=== PATIENT | male | born 1995 | race Two or more races ===

== ENCOUNTER 2024-08-21 18:16 | Inpatient (IN) | payer MEDICAID, OTHER ==
[~2024-08-21] VITALS: Ht 188 cm; Wt 56.0 kg
--- NOTE | 2024-08-21 18:48 | ED.PDOC ---
History of present illness HPI Comments 29-year-old male who came to ER for hyperglycemia. Patient has history of type 1 diabetes, and claims that he has good compliance to his insulin. For the past week patient has been having abdominal discomfort, with episodes of nausea and vomiting. Said symptoms will resolve after a few days. Earlier today, patient started having nausea and vomiting again, blood sugar upon arrival read "high". Chief Complaint: Hyperglycemia Time Seen by MD: 18:47 History of present illness: Nurses Notes Allergies: Coded Allergies: NO KNOWN ALLERGIES (Unverified , 08/21/24) Information Source: Patient Mode of Arrival: Ambulatory Timing: Hours Duration: Since onset Prehospital treatment: None [place]: Shaky, Sweaty Symptoms: Anxious, Shaky, Sweaty History of: Diabetes, Insulin use Associated signs and symptoms: Abdominal Pain, Nausea, Vomiting Past Medical History PAST MEDICAL HISTORY: CVA, DM Surgical History (Other): Right eye enucleation Family History Family History: Reviewed,noncontributory to illness Social History Smoker: Non-Smoker Alcohol: Denies ETOH Use Drugs: Denies Drug Use Lives In: Home Constitutional: reports: weakness; denies: chills, diaphoresis, fatigue, fever, malaise, sweats, others EENTM: denies: blurred vision, double vision, ear bleeding, ear discharge, ear drainage, ear pain, ear ringing, eye pain, eye redness, hearing loss, mouth pain, mouth swelling, nasal discharge, nose bleeding, nose congestion, nose pain, photophobia, tearing, throat pain, throat swelling, voice changes, others Respiratory: denies: cough, hemoptysis, orthopnea, SOB at rest, shortness of breath, SOB with excertion, stridor, wheezing, others Cardiovascular: denies: chest pain, dizzy spells, diaphoresis, Dyspnea on exertion, edema, irregular heart beat, left arm pain, lightheadedness, palpitations, PND, syncope, others Gastrointestinal: reports: abdominal pain, nausea, vomiting; denies: abdomen distended, blood streaked bowels, constipated, diarrhea, dysphagia, difficulty swallowing, hematemesis, melena, poor appetite, poor fluid intake, rectal bleeding, rectal pain, others Genitourinary: denies: burning, dysuria, flank pain, frequency, hematuria, incontinence, penile discharge, penile sore, pain, testicle pain, testicle swelling, urgency, others Neurological: denies: dizziness, fainting, headache, left sided numbness, left sided weakness, numbness, paresthesia, pre-existing deficit, right sided numbness, right sided weakness, seizure, speech problems, tingling, tremors, weakness, others Musculoskeletal: denies: back pain, gout, joint pain, joint swelling, muscle pain, muscle stiffness, neck pain, others Integumetry: denies: bruises, change in color, change in hair/nails, dryness, laceration, lesions, lumps, rash, wounds, others Allergic/Immunocompromised: denies: Difficulty Healing, Frequent Infections, Hives, Itching, others Hematologic/Lymphatic: denies: anemia, blood clots, easy bleeding, easy bruising, swollen glands, others Endocrine: denies: excessive hunger, excessive sweating, excessive thirst, excessive urination, flushing, intolerance to cold, intolerance to heat, unexplained weight gain, unexplained weight loss, others Psychiatric: denies: anxiety, bipolar disorder, depression, hopeless, panic disorder, schizophrenia, sleepless, suicidal, others Physical Exam General Appearance: Moderate Distress, Normal, Thin HEENT: Normal ENT Inspection, Pharynx Normal, TMs Normal, Other (old right eye enucleation) Neck: Full Range of Motion, Non-Tender, Normal, Normal Inspection Respiratory: Chest Non-Tender, Lungs Clear, No Accessory Muscle Use, No Respiratory Distress, Normal Breath Sounds Cardiovascular: No Edema, No JVD, No Murmur, No Gallop, Tachycardia Breast Exam: Deferred Gastrointestinal: No Organomegaly, Non Tender, No Pulsatile Mass, Normal Bowel Sounds, Soft Genitalia: Deferred Pelvic: Deferred Rectal: Deferred Extremities: No calf tenderness, Normal capillary refill, Normal inspection, Normal range of motion, Non-tender, No pedal edema Musculoskeletal : Apperance: Normal Neurologic: Alert, 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 Was a procedure done?: No Differential Diagnosis (DM) Differential Diagnosis: DKA, Electrolyte Abnormality, Gastritis, Gastroenteritis, Hyperglycemia X-Ray, Labs, Meds, VS Vital Signs Date Time Temp Pulse Resp B/P (MAP) Pulse Ox O2 Delivery O2 Flow Rate FiO2 08/21/24 18:36 98.4 103 20 133/89 (104) 99 Lab Test 08/21/24 19:06 08/21/24 19:00 08/21/24 18:28 08/21/24 18:27 Range/Units White Blood Count 12.2 H 4.4-10.8 10^3/uL Red Blood Count 3.77 L 4.5-5.90 10^6/uL Hemoglobin 10.7 L 13.5-17.5 g/dL Hematocrit 33.8 L 41.0-53.0 % Mean Corpuscular Volume 89.6 80.0-100.0 fL Mean Corpuscular Hemoglobin 28.5 28.0-32.0 pg Mean Corpuscular Hemoglobin Concent 31.8 L 32.0-36.0 g/dL Red Cell Distribution Width 18.0 H 11.8-14.3 % Platelet Count 433 140-450 10^3/uL Mean Platelet Volume 8.0 6.9-10.8 fL Neutrophils (%) (Auto) 67.7 37.0-80.0 % Lymphocytes (%) (Auto) 19.3 10.0-50.0 % Monocytes (%) (Auto) 11.1 0.0-12.0 % Eosinophils (%) (Auto) 1.1 0.0-7.0 % Basophils (%) (Auto) 0.8 0.0-2.0 % Neutrophils # (Auto) 8.3 1.6-8.6 10 ^3/uL Lymphocytes # (Auto) 2.4 0.4-5.4 10 ^3/uL Monocytes # (Auto) 1.4 H 0-1.3 10 ^3/uL Eosinophils # (Auto) 0.1 0-0.8 10 ^3/uL Basophils # (Auto) 0.1 0-0.2 10 ^3/uL Nucleated Red Blood Cells 0.0 % Sodium Level 128 L 136-145 mmol/L Potassium Level 4.7 3.5-5.1 mmol/L Chloride Level 93 L 98-107 mmol/L Carbon Dioxide Level 23 20-31 mmol/L Anion Gap 12 5-15 Blood Urea Nitrogen 40 H 9-23 mg/dL Creatinine 2.70 H 0.700-1.30 mg/dL Glomerular Filtration Rate Calc 32 >90 mL/min BUN/Creatinine Ratio 14.8 10.0-20.0 Serum Glucose 640 *H 74-106 mg/dL Calcium Level 10.4 8.7-10.4 mg/dL Magnesium Level 2.0 1.6-2.6 mg/dL Total Bilirubin 0.3 0.2-1.0 mg/dL Aspartate Amino Transferase (AST) 27 13-40 U/L Alanine Aminotransferase (ALT) 30 7-40 U/L Alkaline Phosphatase 150 H 46-116 U/L Total Protein 7.9 5.7-8.2 g/dL Albumin 4.9 H 3.2-4.8 g/dL Beta-Hydroxybutyric Acid Pending Blood Gas Specimen Type Venous Blood Gas Sample Site Vbg - n/a Blood Gas Patient Temperature 37.0 Arterial Blood Date Drawn [id number] Ryan Test N/a Venous Blood pH 7.333 7.320-7.430 Venous Blood pCO2 at Patient Temp 44.8 38.0-54.0 mmHg Venous Blood pO2 at Patient Temp < 36.5 23.0-48.0 mmHg Venous Blood HCO3 23.2 22.0-29.0 mmol/L Venous Blood Base Excess -2.8 L -2.0-3.0 mmol/L Blood Gas Modality Room air FiO2 % 21.0 POC Glucose > 600 *H > 600 *H 70-106 mg/dl Time of 1ST Reevaluation: 18:45 Reevaluation 1ST: Unchanged Time of 2ND Reevaluation: 21:22 Reevaluation 2ND: Unchanged Patient Education/Counseling: Diagnosis, Treatment Family Education/Counseling: No Family Present Departure 1 Departure Time of Disposition: 21:07 Impression: Primary Impression: Type 1 diabetes mellitus with hyperglycemia Additional Impressions: Acute renal injury Dehydration Disposition: 09 ADMITTED INPATIENT Admit to: Med Surg Condition: Guarded Critical Care Note Critical Care Time?: Yes (45 min-critical care time only) Critical care comment: Hyperglycemia Total critical care time: Approximately 36 minutes Due to a high probability of clinically significant, life threatening de terioration, the patient required my highest level of preparedness to intervene emergently and I personally spent this critical care time directly and personally managing the patient. This critical care time included obtaining a history; examining the patient; pulse oximetry; ordering and review of studies; arranging urgent treatment with development of a management plan; evaluation of patient's response to treatment; frequent reassessment; and, discussions with other providers. This critical care time was performed to assess and manage the high probability of imminent, life-threatening deterioration that could result in multi-organ failure. It was exclusive of separately billable procedures and treating other patients. Stability Stability form required: No Heart Score Heart Score: Heart Score Response (Comments) Value History Slightly Suspicious 0 EKG N/A 0 Age <45 0 Risk Factors 1 or 2 risk factors 1 Troponin N/A 0 Total 1 I personally scribed for MARY LOU DE OLIVEIRA MD ([email or web address]) on 08/21/24 at 18:48. Electronically submitted by Raúl Phillips ([facility]). MARY LOU DE OLIVEIRA MD Aug 21, 2024 18:48
[2024-08-21 19:28] LABS: Basophils # (auto) 0.1 10 ^3/uL (0-0.2); Basophils % (auto) 0.8 % (0.0-2.0); Eosinophils # (auto) 0.1 10 ^3/uL (0-0.8); Eosinophils % (auto) 1.1 % (0.0-7.0); Hematocrit 33.8 % (41.0-53.0); Hemoglobin 10.7 g/dL (13.5-17.5); Lymphocytes # (auto) 2.4 10 ^3/uL (0.4-5.4); Lymphocytes % (auto) 19.3 % (10.0-50.0); Mean Corpuscular Hemoglobin 28.5 pg (28.0-32.0); Mean Corpuscular Hgb Conc. 31.8 g/dL (32.0-36.0); Mean Corpuscular Volume 89.6 fL (80.0-100.0); Monocytes # (auto) 1.4 10 ^3/uL (0-1.3); Monocytes % (auto) 11.1 % (0.0-12.0); Neutrophils # (auto) 8.3 10 ^3/uL (1.6-8.6); Neutrophils % (auto) 67.7 % (37.0-80.0); Platelet Count (auto) 433 10^3/uL (140-450); Red Blood Cells 3.77 10^6/uL (4.5-5.90); White Blood Cell 12.2 10^3/uL (4.4-10.8)
[2024-08-21 19:43] LABS: Alanine Aminotransferase 30 U/L (7-40); Anion Gap 12 (5-15); Aspartate Aminotransferase 27 U/L (13-40); BUN/Creatinine Ratio 14.8 (10.0-20.0); Calcium 10.4 mg/dL (8.7-10.4); Carbon Dioxide 23 mmol/L (20-31); Potassium 4.7 mmol/L (3.5-5.1); Total Protein 7.9 g/dL (5.7-8.2)
[2024-08-21 19:46] LABS: Albumin 4.9 g/dL (3.2-4.8); Alkaline Phosphatase 150 U/L (46-116); Bilirubin, Total 0.3 mg/dL (0.2-1.0); Blood Urea Nitrogen 40 mg/dL (9-23); Chloride 93 mmol/L (98-107); Sodium 128 mmol/L (136-145)
[2024-08-21 19:56] LABS: Glucose 640 mg/dL (74-106)
[2024-08-21] MEDS ORDERED: MORPHINE SULFATE INJ 2 MG/ml SYRG IV PRN (22:15)
[2024-08-21] MEDS ORDERED: ACETAMINOPHEN 325 MG TAB PO PRN (22:15)
[2024-08-21] MEDS ORDERED: ONDANSETRON HCL 4 MG/2 ML VIAL IV PRN (22:15)
[2024-08-21] MEDS ORDERED: NITROGLYCERIN 0.4 MG SL TAB SL PRN (22:15)
[2024-08-21] MEDS ORDERED: DEXTROSE (50%) 50ML SYRG IV PRN (22:15)
--- NOTE | 2024-08-21 22:23 | DVHHPRES ---
History of Present Illness Resident Creating Document: DAVI ANDERSON RESIDENT History of Present Illness This is a 29 years old male past medical history of type 1 diabetes mellitus, CVA with left-sided weakness, schizophrenia presented to the ED with a chief complaint of hyperglycemia. The patient states that he has been having abdominal discomfort with few episodes of nausea and vomiting for last 2 days and compliant with his insulin. The patient denies headache, flu-like symptoms, productive cough, chest pain, dizziness, diaphoresis, any change in bowel and bladder habit, dysuria, sick contact or any recent traveling. On admission the blood sugar was 600 with normal anion gap and increase beta hy droxybutyric acid. Patient is admitted for further management of hyperglycemia with normal anion gap ketoacidosis. 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 Family History Not Known because patient was adopted Past Social History Marijuana since adolescence, nonalcoholic and never tried any other drugs Review of Systems Constitutional: Yes: Weakness; No: Fever, Chills, Sweats, Malaise, Other Eyes: No: Pain, Vision change, Conjunctivae inflammation, Eyelid inflammation, Other, Redness ENT: No: Ear pain, Ear discharge, Nose pain, Nose discharge, Nose congestion, Mouth pain, Mouth swelling, Throat pain, Throat swelling, Other Respiratory: No: Cough, Dry, Shortness of breath, SOB with excertion, Wheezing, Hemoptysis, Pleuritic Pain, Sputum, Wheezing, Other Cardiovascular: No: Chest Pain, Palpitations, Orthopnea, Paroxysmal Noc. Dyspnea, Edema, Lt Headedness, Other Gastrointestinal: Nausea, Vomiting, Abdominal Pain; No: Diarrhea, Constipation, Melena, Hematochezia, Other Genitourinary: No Dysuria, No Frequency, No Incontinence, No Hematuria, No Retention, No Other Musculoskeletal: No: other, neck pain, shoulder pain, arm pain, back pain, hand pain, leg pain, foot pain Skin: No: Rash, Lesions, Jaundice, Bruising, Other Neurological: No: Weakness, Numbness, Incoordination, Change in speech, Confusion, Seizures, Other Allergies: Coded Allergies: NO KNOWN ALLERGIES (Unverified , 08/21/24) Medications Current Medications Medications Dose Ordered Sig/Dann Route Start Time Stop Time Status Last Admin Dose Admin Ondansetron HCl 4 mg Q4HP PRN IV 08/21/24 22:15 UNV Acetaminophen 650 mg Q6HP PRN PO 08/21/24 22:15 UNV Nitroglycerin 0.4 mg Q5MINP PRN SL 08/21/24 22:15 UNV Morphine Sulfate 2 mg Q30M PRN IV 08/21/24 22:15 UNV Sodium Chloride 1,000 ml @ 500 mls/hr Q2H IV 08/21/24 22:15 08/22/24 02:14 UNV Sodium Chloride 1,000 ml @ 250 mls/hr Q4H IV 08/22/24 02:15 08/22/24 04:14 UNV Sodium Chloride 1,000 ml @ 150 mls/hr Q6H40M IV 08/22/24 04:15 UNV Insulin Human (Reg)/Sodium Chloride 100 ml @ 0.5 mls/hr Q24H IV 08/21/24 22:15 UNV Dextrose 50 ml UD PRN IV 08/21/24 22:15 UNV Insulin Glargine 15 units DAILY SC 08/22/24 10:00 UNV Exam Vital Signs Vital Signs Date Time Temp Pulse Resp B/P (MAP) Pulse Ox O2 Delivery O2 Flow Rate FiO2 08/21/24 18:36 98.4 103 20 133/89 (104) 99 Exam Physical examination: General Appearance: Alert, Oriented X3, Cooperative, No acute distress HEENT: Atraumatic, PERRLA, EOMI, Mucous membrane dry Respiratory: Clear to auscultation, Normal air movement Cardiovascular: Regular rate, Normal S1, Normal S2, No murmurs, no chest wall tenderness Abdominal: Normal bowel sounds, Soft, No tenderness, No hepatospenomegaly, No masses Extremities: No clubbing, No cyanosis, No edema, Normal pulses, No tenderness/swelling Skin: No rashes, No breakdown, No significant lesion Neuro: Lt sided weakness, Normal speech, Strength at 5/5 X2 ext, Normal tone, Sensation intact, grossly intact cranial nerves. Psych/Mental Status: Mental status NL, Mood NL Labs/Xrays Labs Test 08/21/24 19:06 08/21/24 19:00 08/21/24 18:28 Range/Units White Blood Count 12.2 H 4.4-10.8 10^3/uL Red Blood Count 3.77 L 4.5-5.90 10^6/uL Hemoglobin 10.7 L 13.5-17.5 g/dL Hematocrit 33.8 L 41.0-53.0 % Mean Corpuscular Volume 89.6 80.0-100.0 fL Mean Corpuscular Hemoglobin 28.5 28.0-32.0 pg Mean Corpuscular Hemoglobin Concent 31.8 L 32.0-36.0 g/dL Red Cell Distribution Width 18.0 H 11.8-14.3 % Platelet Count 433 140-450 10^3/uL Mean Platelet Volume 8.0 6.9-10.8 fL Neutrophils (%) (Auto) 67.7 37.0-80.0 % Lymphocytes (%) (Auto) 19.3 10.0-50.0 % Monocytes (%) (Auto) 11.1 0.0-12.0 % Eosinophils (%) (Auto) 1.1 0.0-7.0 % Basophils (%) (Auto) 0.8 0.0-2.0 % Neutrophils # (Auto) 8.3 1.6-8.6 10 ^3/uL Lymphocytes # (Auto) 2.4 0.4-5.4 10 ^3/uL Monocytes # (Auto) 1.4 H 0-1.3 10 ^3/uL Eosinophils # (Auto) 0.1 0-0.8 10 ^3/uL Basophils # (Auto) 0.1 0-0.2 10 ^3/uL Nucleated Red Blood Cells 0.0 % Sodium Level 128 L 136-145 mmol/L Potassium Level 4.7 3.5-5.1 mmol/L Chloride Level 93 L 98-107 mmol/L Carbon Dioxide Level 23 20-31 mmol/L Anion Gap 12 5-15 Blood Urea Nitrogen 40 H 9-23 mg/dL Creatinine 2.70 H 0.700-1.30 mg/dL Glomerular Filtration Rate Calc 32 >90 mL/min BUN/Creatinine Ratio 14.8 10.0-20.0 Serum Glucose 640 *H 74-106 mg/dL Calcium Level 10.4 8.7-10.4 mg/dL Magnesium Level 2.0 1.6-2.6 mg/dL Total Bilirubin 0.3 0.2-1.0 mg/dL Aspartate Amino Transferase (AST) 27 13-40 U/L Alanine Aminotransferase (ALT) 30 7-40 U/L Alkaline Phosphatase 150 H 46-116 U/L Total Protein 7.9 5.7-8.2 g/dL Albumin 4.9 H 3.2-4.8 g/dL Beta-Hydroxybutyric Acid 1.765 H < 0.4 mmol/L Blood Gas Specimen Type Venous Blood Gas Sample Site Vbg - n/a Blood Gas Patient Temperature 37.0 Arterial Blood Date Drawn Ryan Test N/a Venous Blood pH 7.333 7.320-7.430 Venous Blood pCO2 at Patient Temp 44.8 38.0-54.0 mmHg Venous Blood pO2 at Patient Temp < 36.5 23.0-48.0 mmHg Venous Blood HCO3 23.2 22.0-29.0 mmol/L Venous Blood Base Excess -2.8 L -2.0-3.0 mmol/L Blood Gas Modality Room air FiO2 % 21.0 POC Glucose > 600 *H 70-106 mg/dl Assessment/Plan Assessment/Plan Assessment and plan: # Hyperglycemia with normal anion gap ketoacidosis # Psedohyponatremia due to hyperglycemia - Blood sugar is 600, normal anion gap and elevated beta hydroxybutyric acid - Given 2 L bolus IV normal saline - Insulin drip as per protocol - Potassium is 4 and magnesium and phosphorus are within normal limits. 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 daily and atorvastatin 40 mg at HS # History of schizophrenia - Continue home meds Goal of care discussed with the patient for more than 17 minutes full code Plan of treatment discussed with Dr. Winters Plan discussed with: Patient, Other My Orders Orders - DAVI ANDERSON RESIDENT Procedure Category Date Status Time Code Status CODE 08/21/24 Transmitted 22:13 Ondansetron Hcl PHA 08/21/24 Logged (Zofran) 22:15 Complete Blood Count LAB 08/22/24 Verified 04:00 Comprehensive LAB 08/22/24 Verified Metabolic Panel 04:00 Npo (Nothing By DIET 08/22/24 Transmitted Mouth) Diet Breakfast Acetaminophen Tablet PHA 08/21/24 Logged (Tylenol Tablet) 22:15 Nitroglycerin PHA 08/21/24 Logged Sublingual (Ntrostat 22:15 Morphine Sulfate PHA 08/21/24 Logged Injection 22:15 Oxygen By Nasal RT 08/21/24 Transmitted Cannula 22:13 Stat Ekg For Chest KITA 08/21/24 In Process Pain 22:13 Notify Of Changes KITA 08/21/24 In Process From Base 22:13 Sustainability Purchasing Agent For KITA 08/21/24 In Process 24 Hours 22:13 Emergency Dysrhythmia KITA 08/21/24 In Process Protocol 22:13 Rhythm Strips Once KITA 08/21/24 In Process Every Shift 22:13 Insulin Drip Protocol KITA 08/21/24 In Process Sodium Chloride 0.9% PHA 08/21/24 Logged 22:15 Sodium Chloride 0.9% PHA 08/22/24 Logged 02:15 Sodium Chloride 0.9% PHA 08/22/24 Logged 04:15 Insulin Drip 100 PHA 08/21/24 Logged Unit/100ml (Myxredlin 22:15 Dextrose 50% Syringe PHA 08/21/24 Logged 22:15 Phosphorus LAB 08/21/24 Logged 22:13 Magnesium LAB 08/21/24 Logged 22:13 Osmolality, Serum LAB 08/21/24 Logged 22:13 Urinalysis LAB 08/21/24 Logged 22:13 Insulin Lantus PHA 08/21/24 Logged (Glargine) (Lantus) 22:15 Insulin Lantus PHA 08/22/24 Logged (Glargine) (Lantus) 10:00 Admit ADMIT 08/21/24 Transmitted 22:20 Urinalysis LAB 08/21/24 Logged 22:21 Urine Protein LAB 08/21/24 Logged 22:21 Urine Creatinine LAB 08/21/24 Logged 22:21 Urine Sodium LAB 08/21/24 Logged 22:21 Date of Service: Aug 21, 2024 Billing Provider: VASILE WINTERS MD Common Visit Codes: [id number] INP/OBS CARE (HIGH) DAVI ANDERSON RESIDENT Aug 21, 2024 22:23 VASILE WINTERS MD Aug 22, 2024 10:47
[2024-08-21] MEDS: SODIUM CHLORIDE 0.9% 1,000 ML IV ONE ×2 (22:25)
[2024-08-21] MEDS ORDERED: ACCU-CHEK COMFORT CURVE STRIP VI SCH (22:30)
--- NOTE | 2024-08-21 22:40 | DVH ---
CHEST RADIOGRAPH Indication: chest pain Technique: Single frontal view of the chest was obtained COMPARISON: None FINDINGS: Lines and Tubes: None Lungs: Clear Pleura: No effusion. No pneumothorax. Cardiomediastinal contours: Unremarkable Bones: Unremarkable IMPRESSION: 1. No acute disease.
[2024-08-21] MEDS: SODIUM CHLORIDE 0.9% 1,000 ML IV SCH (22:54)
[2024-08-21] MEDS: INSULIN LANTUS (GLARGINE) 1 /0.01ml (100units/ml) SC ONE (22:58)
[2024-08-21] MEDS: InsuLIN REG 1unit/0.01ml Soln (100units/ml) IV ONE (23:01)
[2024-08-22] VITALS (7 sets, daily range): BP systolic 149–161; BP diastolic 91–112; PULSE 79–95; RESP 12–20; TEMP 98–98.6; O2SAT 97–99
--- NOTE | 2024-08-22 01:24 | DVH ---
INDICATION: NATASHA on CKD TECHNIQUE: Multiple real-time sonographic images of the kidneys and bladder were obtained. COMPARISON: None FINDINGS: The right kidney measures 11 cm in length. The right renal echogenicity, contour and cortical thickne ss are within normal limits. No hydronephrosis or large masses/calculi are seen. The left kidney measures 9.6 cm in length. The left renal echogenicity, contour, and cortical thickne ss are within normal limits. Questionable mild hydronephrosis. No calculi. No large intraluminal masses are seen in the bladder. IMPRESSION: 1. Questionable mild left-sided hydronephrosis
[2024-08-22] MEDS: INSULIN DRIP 100 UNIT/100ML 100 ML IV SCH (01:51)
[2024-08-22 02:09] LABS: Urine Bacteria None Seen /hpf (None Seen); Urine WBC None Seen /hpf (0 - 3)
[2024-08-22 03:02] LABS: Urine Blood Negative /uL (Negative); Urine Budding Yeast OCCASIONAL /hpf (None Seen); Urine Clarity Clear (Clear); Urine Protein, UAD Negative (Negative); Urine Specific Gravity 1.022 (1.001-1.035); Urine Squamous Epithelial Cell None Seen /hpf (<5); Urine Urobilinogen Normal (Negative)
[2024-08-22 03:05] LABS: Urine Color STRAW (Yellow)
[2024-08-22 03:43] LABS: Protein, Urine 17.3 mg/dL (1-14)
[2024-08-22 03:46] LABS: Creatinine, Urine 30.55 mg/dL (30.0-125.0)
[2024-08-22] MEDS: SODIUM CHLORIDE 0.9% 1,000 ML IV SCH ×2 (04:08→06:08)
[2024-08-22 06:11] LABS: Rapid Influenza A Negative (Negative); Rapid Influenza B Negative (Negative)
[2024-08-22 06:12] LABS: Basophils # (auto) 0.1 10 ^3/uL (0-0.2); Basophils % (auto) 0.9 % (0.0-2.0); Eosinophils # (auto) 0.1 10 ^3/uL (0-0.8); Eosinophils % (auto) 0.7 % (0.0-7.0); Hematocrit 28.2 % (41.0-53.0); Hemoglobin 9.3 g/dL (13.5-17.5); Lymphocytes # (auto) 2.6 10 ^3/uL (0.4-5.4); Lymphocytes % (auto) 21.6 % (10.0-50.0); Mean Corpuscular Hemoglobin 28.7 pg (28.0-32.0); Mean Corpuscular Hgb Conc. 32.9 g/dL (32.0-36.0); Mean Corpuscular Volume 87.1 fL (80.0-100.0); Monocytes # (auto) 1.9 10 ^3/uL (0-1.3); Monocytes % (auto) 15.6 % (0.0-12.0); Neutrophils # (auto) 7.3 10 ^3/uL (1.6-8.6); Neutrophils % (auto) 61.2 % (37.0-80.0); Nucleated Red Blood Cells % 0.2 %; Platelet Count (auto) 411 10^3/uL (140-450); Red Blood Cells 3.24 10^6/uL (4.5-5.90); Red Cell Distribution Width 17.4 % (11.8-14.3); White Blood Cell 11.9 10^3/uL (4.4-10.8)
[2024-08-22 06:12] LABS: COVID19 ANTIGEN SOFIA FIA NEGATIVE (NEGATIVE)
[2024-08-22 06:45] LABS: Alanine Aminotransferase 24 U/L (7-40); Alkaline Phosphatase 111 U/L (46-116); Anion Gap 10 (5-15); BUN/Creatinine Ratio 20.2 (10.0-20.0); Calcium 9.1 mg/dL (8.7-10.4); Carbon Dioxide 26 mmol/L (20-31); Potassium 3.9 mmol/L (3.5-5.1); Sodium 145 mmol/L (136-145)
[2024-08-22] MEDS ORDERED: DEXTROSE (50%) 50ML SYRG IV PRN (06:45)
[2024-08-22 06:46] LABS: Albumin 3.8 g/dL (3.2-4.8); Total Protein 6.1 g/dL (5.7-8.2)
[2024-08-22 06:51] LABS: Aspartate Aminotransferase 11 U/L (13-40); Bilirubin, Total 0.3 mg/dL (0.2-1.0); Blood Urea Nitrogen 42 mg/dL (9-23); Chloride 109 mmol/L (98-107); Glucose 184 mg/dL (74-106)
[2024-08-22] MEDS: InsuLIN REG 1unit/0.01ml Soln (100units/ml) SC SCH (07:50)
[2024-08-22] MEDS: ACCU-CHEK COMFORT CURVE STRIP VI SCH (07:50)
[2024-08-22] MEDS: INSULIN LANTUS (GLARGINE) 1 /0.01ml (100units/ml) SC SCH (08:08)
[2024-08-22 08:47] LABS: Base Excess -0.3 mmol/L (-2.0-3.0)
--- NOTE | 2024-08-22 09:45 | DVHINCON2 ---
Date of service: Aug 22, [address] Quigley Reason for Consultation Acute kidney injury History of Present Illness Patient is 29-year-old male with past medical history of diabetes mellitus type 1 CVA and right eye enucleation is admitted for abdominal pain status with nausea vomiting for few days. On admission patient found to have elevated BUN creatinine nephrology is consulted for acute kidney injury Past Medical History Diabetes mellitus type 1, CVA Past Surgical History Right eye enucleated Allergies: Coded Allergies: NO KNOWN ALLERGIES (Unverified , 08/21/24) Home Meds Reported Medications Bupropion Hcl (Bupropion Hcl Xl) 150 Mg Tab, 1 TAB PO DAILY 08/22/24 Sodium Citrate & Citric Acid (Sodium Citrate and Citric 500-334 mg/5Ml) 1 Deidre Deidre, 30 ML PO TID, ML 08/22/24 Buspirone Hcl (Buspirone Hcl) 30 Mg Tab, 1 TAB PO DAILY 08/22/24 Ergocalciferol (Vitamin D) 50,000 Unit Cap, 1 CAP PO QWEEKLY 08/22/24 Metoprolol Succinate (Metoprolol Succinate Er) 25 Mg Tab, 1 TAB PO DAILY 08/22/24 Prazosin Hcl (Minipres) 1 Mg Cp, 1 CAP PO HS for nightmares 08/22/24 Pantoprazole Sodium Sesquihydr (Pantoprazole Sodium) 40 Mg Tab, 1 TAB PO DAILY 08/22/24 Atorvastatin Calcium (ATORVASTATIN CALCIUM) 40 Mg Tab, 1 TAB PO DAILY 08/22/24 Aripiprazole (Aripiprazole) 10 Mg Tab, 1 TAB PO DAILY 08/22/24 Trazodone Hcl (Trazodone Hcl) 150 Mg Tab, 1 TAB PO 08/22/24 Current Medications Current Medications Medications (Trade) Dose Ordered Sig/Dann Route PRN Reason Start Time Stop Time Status Last Admin Atorvastatin Calcium (Lipitor) 40 mg HS PO 08/22/24 22:00 08/22/24 21:41 Pantoprazole Sodium (Protonix Tablet) 40 mg DAILY@0600 PO 08/23/24 06:00 08/23/24 06:37 Trazodone HCl (Desyrel) 150 mg HS PO 08/22/24 22:00 08/22/24 21:55 Bupropion HCl (Wellbutrin Tablet) 150 mg DAILY PO 08/23/24 10:00 08/23/24 10:33 Enoxaparin Sodium (Lovenox) 40 mg DAILY SC 08/23/24 10:00 08/23/24 10:34 Prazosin HCl (Minipres Capsule) 1 mg DAILY PO 08/23/24 10:00 08/23/24 11:22 DC Metoprolol Succinate (Toprol Xl) 25 mg DAILY PO 08/23/24 10:00 08/23/24 10:37 Hydralazine HCl (Apresoline Injection) 10 mg Q6HP PRN IV SBP>170 08/23/24 12:00 Prazosin HCl (Minipres Capsule) 1 mg HS PO 08/23/24 22:00 Insulin Glargine (Lantus) 15 units BID@1000,2200 SC 08/23/24 22:00 UNV Diagnostic Test (Pha) (Accu-Chek Comfort Curve T) 1 strip ACHS 08/23/24 17:00 UNV Insulin Human Regular (InsuLIN R) AC SC 08/23/24 17:00 UNV Insulin Human Regular (InsuLIN R) HS SC 08/23/24 22:00 UNV Dextrose 50 ml UD PRN IV Blood Sugar LESS THAN 60 08/23/24 12:30 UNV Review of Systems All 12 item review of systems reviewed with the patient nonsignificant except what is mentioned in the history of present illness H&P Exam Vital Signs/I&O Vital Sign Date Time Temp Pulse Resp B/P (MAP) Pulse Ox O2 Delivery O2 Flow Rate FiO2 08/23/24 10:37 95 152/87 08/23/24 08:58 98.6 12 100 98.6 08/22/24 20:00 Room Air* 0 21 Intake and Output 08/22/24 08/23/24 19:00 07:00 Intake Total 851.5 ml 1140 ml Output Total 850 ml 1850 ml Balance 1.5 ml -710 ml Intake Oral 1140 ml IV Total 851.5 ml Output Urine Total 850 ml 1850 ml Physical Exam Awake and alert Right eye enucleated Lungs clear to auscultation bilaterally Cardiac exam regular rate and rhythm GI soft nontender normal Extremities no clubbing cyanosis or edema Neuro patient is alert Labs/Diagnostic Data Labs/Diagnostic Data Laboratory Tests Test 08/23/24 11:54 08/23/24 11:53 08/23/24 09:01 08/23/24 06:36 Range/Units POC Glucose 493 *H 497 *H 271 H 70-106 mg/dl White Blood Count 9.4 4.4-10.8 10^3/uL Red Blood Count 3.65 L 4.5-5.90 10^6/uL Hemoglobin 10.5 L 13.5-17.5 g/dL Hematocrit 33.0 #L 41.0-53.0 % Mean Corpuscular Volume 90.4 80.0-100.0 fL Mean Corpuscular Hemoglobin 28.8 28.0-32.0 pg Mean Corpuscular Hemoglobin Concent 31.9 L 32.0-36.0 g/dL Red Cell Distribution Width 17.6 H 11.8-14.3 % Platelet Count 417 140-450 10^3/uL Mean Platelet Volume 7.3 6.9-10.8 fL Neutrophils (%) (Auto) 67.8 37.0-80.0 % Lymphocytes (%) (Auto) 22.2 10.0-50.0 % Monocytes (%) (Auto) 6.9 0.0-12.0 % Eosinophils (%) (Auto) 2.3 0.0-7.0 % Basophils (%) (Auto) 0.8 0.0-2.0 % Neutrophils # (Auto) 6.4 1.6-8.6 10 ^3/uL Lymphocytes # (Auto) 2.1 0.4-5.4 10 ^3/uL Monocytes # (Auto) 0.7 0-1.3 10 ^3/uL Eosinophils # (Auto) 0.2 0-0.8 10 ^3/uL Basophils # (Auto) 0.1 0-0.2 10 ^3/uL Nucleated Red Blood Cells 0.1 % Sodium Level 133 #L 136-145 mmol/L Potassium Level 4.5 3.5-5.1 mmol/L Chloride Level 103 98-107 mmol/L Carbon Dioxide Level 21 20-31 mmol/L Anion Gap 9 5-15 Blood Urea Nitrogen 22 # 9-23 mg/dL Creatinine 2.03 H 0.700-1.30 mg/dL Glomerular Filtration Rate Calc 45 >90 mL/min BUN/Creatinine Ratio 10.8 10.0-20.0 Serum Glucose 353 #H 74-106 mg/dL Calcium Level 9.7 8.7-10.4 mg/dL Total Bilirubin 0.2 0.2-1.0 mg/dL Aspartate Amino Transferase (AST) 18 13-40 U/L Alanine Aminotransferase (ALT) 27 7-40 U/L Alkaline Phosphatase 128 H 46-116 U/L Total Protein 7.1 5.7-8.2 g/dL Albumin 4.4 3.2-4.8 g/dL Test 08/22/24 21:46 08/22/24 17:11 08/22/24 15:14 08/22/24 09:07 Range/Units POC Glucose 323 H 285 H 280 H 78 70-106 mg/dl Test 08/22/24 08:36 08/22/24 07:54 08/22/24 06:19 08/22/24 05:45 Range/Units Blood Gas Specimen Type Arterial Blood Gas Sample Site Right radial Blood Gas Patient Temperature 37.0 Arterial Blood Date Drawn [id number] Arterial Blood pH 7.418 7.350-7.450 Arterial Blood Partial Pressure CO2 38.2 35.0-48.0 mmHg Arterial Blood Partial Pressure O2 59.3 L 83.0-108.0 mmHg Arterial Blood HCO3 24.1 21.0-28.0 mmol/L Arterial Blood Oxygen Saturation 91.0 L 94.0-98.0 % Arterial Blood Base Excess -0.3 -2.0-3.0 mmol/L Arterial Blood Oxyhemoglobin 89.6 L 94.0-98.0 % Arterial Blood Carboxyhemoglobin 1.2 0.5-1.5 % Arterial Blood Methemoglobin 0.3 0.0-1.5 % Ryan Test Yes Blood Gas Total Hemoglobin 9.90 L 13.5-17.5 g/dL Blood Gas Modality Room air FiO2 % 21.0 POC Glucose 119 H 164 H 70-106 mg/dl White Blood Count 11.9 H 4.4-10.8 10^3/uL Red Blood Count 3.24 L 4.5-5.90 10^6/uL Hemoglobin 9.3 L 13.5-17.5 g/dL Hematocrit 28.2 #L 41.0-53.0 % Mean Corpuscular Volume 87.1 80.0-100.0 fL Mean Corpuscular Hemoglobin 28.7 28.0-32.0 pg Mean Corpuscular Hemoglobin Concent 32.9 32.0-36.0 g/dL Red Cell Distribution Width 17.4 H 11.8-14.3 % Platelet Count 411 140-450 10^3/uL Mean Platelet Volume 7.4 6.9-10.8 fL Neutrophils (%) (Auto) 61.2 37.0-80.0 % Lymphocytes (%) (Auto) 21.6 10.0-50.0 % Monocytes (%) (Auto) 15.6 H 0.0-12.0 % Eosinophils (%) (Auto) 0.7 0.0-7.0 % Basophils (%) (Auto) 0.9 0.0-2.0 % Neutrophils # (Auto) 7.3 1.6-8.6 10 ^3/uL Lymphocytes # (Auto) 2.6 0.4-5.4 10 ^3/uL Monocytes # (Auto) 1.9 H 0-1.3 10 ^3/uL Eosinophils # (Auto) 0.1 0-0.8 10 ^3/uL Basophils # (Auto) 0.1 0-0.2 10 ^3/uL Nucleated Red Blood Cells 0.2 % Sodium Level 145 # 136-145 mmol/L Potassium Level 3.9 3.5-5.1 mmol/L Chloride Level 109 #H 98-107 mmol/L Carbon Dioxide Level 26 20-31 mmol/L Anion Gap 10 5-15 Blood Urea Nitrogen 42 H 9-23 mg/dL Creatinine 2.08 H 0.700-1.30 mg/dL Glomerular Filtration Rate Calc 44 >90 mL/min BUN/Creatinine Ratio 20.2 H 10.0-20.0 Serum Glucose 184 #H 74-106 mg/dL Hemoglobin A1c 9.3 H <5.7 % A1C Calcium Level 9.1 8.7-10.4 mg/dL Phosphorus Level 3.8 2.4-5.1 mg/dL Total Bilirubin 0.3 0.2-1.0 mg/dL Aspartate Amino Transferase (AST) 11 L 13-40 U/L Alanine Aminotransferase (ALT) 24 7-40 U/L Alkaline Phosphatase 111 46-116 U/L Total Protein 6.1 5.7-8.2 g/dL Albumin 3.8 3.2-4.8 g/dL Thyroid Stimulating Hormone (TSH) 0.26 L 0.55-4.78 uIU/mL Test 08/22/24 04:58 08/22/24 04:49 08/22/24 03:27 08/22/24 02:07 Range/Units Influenza Type A Antigen Negative Negative Influenza Type B Antigen Negative Negative POC Glucose 235 H 328 H 70-106 mg/dl Urine Color Straw Yellow Urine Clarity Clear Clear Urine pH 7.0 5.0-9.0 Urine Specific Mamou 1.022 1.001-1.035 Urine Protein Negative Negative Urine Ketones 1+ H Negative Urine Blood Negative Negative /uL Urine Nitrite Negative Negative Urine Bilirubin Negative Negative Urine Urobilinogen Normal Negative mg/dL Urine Leukocyte Esterase Negative Negative /uL Urine RBC 1 0 - 3 /hpf Urine WBC None seen 0 - 3 /hpf Urine Squamous Epithelial Cells None seen <5 /hpf Urine Bacteria None seen None Seen /hpf Urine Yeast (Budding) Occasional None Seen /hpf Urine Creatinine 30.55 30.0-125.0 mg/dL Urine Sodium 36 L 40-220 mmol/L Urine Glucose 4+ H Normal mg/dL Urine Total Protein 17.3 H 1-14 mg/dL Test 08/22/24 01:35 08/22/24 00:00 08/21/24 22:24 08/21/24 22:23 Range/Units POC Glucose 468 *H > 600 *H > 600 *H 70-106 mg/dl SARS-CoV-2 Antigen (Rapid) Negative NEGATIVE Test 08/21/24 19:06 08/21/24 19:00 08/21/24 18:28 08/21/24 18:27 Range/Units White Blood Count 12.2 H 4.4-10.8 10^3/uL Red Blood Count 3.77 L 4.5-5.90 10^6/uL Hemoglobin 10.7 L 13.5-17.5 g/dL Hematocrit 33.8 L 41.0-53.0 % Mean Corpuscular Volume 89.6 80.0-100.0 fL Mean Corpuscular Hemoglobin 28.5 28.0-32.0 pg Mean Corpuscular Hemoglobin Concent 31.8 L 32.0-36.0 g/dL Red Cell Distribution Width 18.0 H 11.8-14.3 % Platelet Count 433 140-450 10^3/uL Mean Platelet Volume 8.0 6.9-10.8 fL Neutrophils (%) (Auto) 67.7 37.0-80.0 % Lymphocytes (%) (Auto) 19.3 10.0-50.0 % Monocytes (%) (Auto) 11.1 0.0-12.0 % Eosinophils (%) (Auto) 1.1 0.0-7.0 % Basophils (%) (Auto) 0.8 0.0-2.0 % Neutrophils # (Auto) 8.3 1.6-8.6 10 ^3/uL Lymphocytes # (Auto) 2.4 0.4-5.4 10 ^3/uL Monocytes # (Auto) 1.4 H 0-1.3 10 ^3/uL Eosinophils # (Auto) 0.1 0-0.8 10 ^3/uL Basophils # (Auto) 0.1 0-0.2 10 ^3/uL Nucleated Red Blood Cells 0.0 % Sodium Level 128 L 136-145 mmol/L Potassium Level 4.7 3.5-5.1 mmol/L Chloride Level 93 L 98-107 mmol/L Carbon Dioxide Level 23 20-31 mmol/L Anion Gap 12 5-15 Blood Urea Nitrogen 40 H 9-23 mg/dL Creatinine 2.70 H 0.700-1.30 mg/dL Glomerular Filtration Rate Calc 32 >90 mL/min BUN/Creatinine Ratio 14.8 10.0-20.0 Serum Glucose 640 *H 74-106 mg/dL Serum Osmolality 324 H 278-298 mOsm/kg Calcium Level 10.4 8.7-10.4 mg/dL Phosphorus Level 4.4 2.4-5.1 mg/dL Magnesium Level 2.0 1.6-2.6 mg/dL Total Bilirubin 0.3 0.2-1.0 mg/dL Aspartate Amino Transferase (AST) 27 13-40 U/L Alanine Aminotransferase (ALT) 30 7-40 U/L Alkaline Phosphatase 150 H 46-116 U/L Total Protein 7.9 5.7-8.2 g/dL Albumin 4.9 H 3.2-4.8 g/dL Beta-Hydroxybutyric Acid 1.765 H < 0.4 mmol/L Blood Gas Specimen Type Venous Blood Gas Sample Site Vbg - n/a Blood Gas Patient Temperature 37.0 Arterial Blood Date Drawn Ryan Test N/a Venous Blood pH 7.333 7.320-7.430 Venous Blood pCO2 at Patient Temp 44.8 38.0-54.0 mmHg Venous Blood pO2 at Patient Temp < 36.5 23.0-48.0 mmHg Venous Blood HCO3 23.2 22.0-29.0 mmol/L Venous Blood Base Excess -2.8 L -2.0-3.0 mmol/L Blood Gas Modality Room air FiO2 % 21.0 POC Glucose > 600 *H > 600 *H 70-106 mg/dl Assessment Acute kidney injury superimposed Chronic Kidney Disease secondary to Hemodynamic mediated Diabetic ketoacidosis Uncontrolled diabetes mellitus Hyperglycemia Hyponatremia due to dehydration Anemia of chronic kidney disease Recommendations Closely monitor fluid and electrolytes Avoid nephrotoxic medications Strict I&Os Change IV fluid to hypotonic half normal saline Kidney ultrasound reported questionable left hydronephrosis Insulin sliding scale Check amylase and lipase We will continue to follow Patient seen and examined by myself. I discussed my plan of care with the patient and primary nurse at the bedside I would like to thank Dr. Quigley for the consult, will follow up Plan discussed with: Patient ESTHER PRESCOTT MD Aug 22, 2024 09:45
[2024-08-22] MEDS ORDERED: INSULIN LANTUS (GLARGINE) 1 /0.01ml (100units/ml) SC SCH (10:00)
[2024-08-22] MEDS: ASPirin-EC 81 mg tab PO SCH (10:17)
[2024-08-22] MEDS: SOD CHL 0.45% 1,000 ML IV SCH (10:17)
--- NOTE | 2024-08-22 14:07 | DVHPNRES ---
Progress Note Date Seen: Aug 22, 2024 Resident Creating Document: JOSE KLEIN TALITA Has the PT tested + for MRSA If YES, has PT been informed?: No Medical Necessity Reason Pt with a Central, PICC or Fol: No Subjective Review of Systems This is a 29-year-old male with a past medical history of type 1 diabetes mellitus, CVA with left-sided weakness, and schizophrenia who presented to the ED with a chief complaint of hyperglycemia. The patient states that he has been having abdominal discomfort with a few episodes of nausea and vomiting for the last 2 days and has been compliant with his insulin. The patient denies headache, flu-like symptoms, productive cough, chest pain, dizziness, diaphoresis, any change in bowel and bladder habits, dysuria, sick contacts, or any recent traveling. On admission, the blood sugar was 600 with a normal anion gap and increased beta-hydroxybutyric acid. 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 The patient is using for the walking due to left-sided residual weakness Home medication: Metoprolol succinate ER 25 mg daily, prazosin 1 mg HS, buspirone 30 mg daily, trazodone 150 mg during the night, Protonix 40 mg daily, bupropion 150 mg daily, aripiprazole 10 mg daily, atorvastatin 40 mg during the Allergic history: Noncontributory Patient reports: No new complaints, Feels better Changes from previous H/P or p: Changes Objective vital signs Vital Sign Date Time Temp Pulse Resp B/P (MAP) Pulse Ox O2 Delivery O2 Flow Rate FiO2 08/22/24 11:00 88 15 169/88 (115) 96 08/22/24 07:25 97.6 97.6 08/22/24 07:25 Room Air* 0 21 Total Intake and Output 08/21/24 08/21/24 08/22/24 15:00 23:00 07:00 Intake Total 4510 ml Output Total 1300 ml Balance 3210 ml medications Current Medications Medications Dose Ordered Sig/Dann Route Start Time Stop Time Status Last Admin Dose Admin Ondansetron HCl 4 mg Q4HP PRN IV 08/21/24 22:15 Acetaminophen 650 mg Q6HP PRN PO 08/21/24 22:15 Nitroglycerin 0.4 mg Q5MINP PRN SL 08/21/24 22:15 Morphine Sulfate 2 mg Q30M PRN IV 08/21/24 22:15 Insulin Human (Reg)/Sodium Chloride 100 ml @ 0.5 mls/hr Q24H IV 08/21/24 22:15 08/22/24 01:51 6 MLS/HR Dextrose 50 ml UD PRN IV 08/21/24 22:15 Aspirin 81 mg DAILY PO 08/22/24 10:00 08/22/24 10:17 81 MG Atorvastatin Calcium 40 mg HS PO 08/22/24 22:00 Insulin Glargine 15 units QAM SC 08/22/24 07:00 08/22/24 08:08 15 UNITS Diagnostic Test (Pha) 1 strip ACHS 08/22/24 07:00 08/22/24 11:38 1 STRIP Insulin Human Regular ACHS SC 08/22/24 07:00 Dextrose 50 ml UD PRN IV 08/22/24 06:45 Sodium Chloride 1,000 ml @ 125 mls/hr Q8H IV 08/22/24 10:15 08/22/24 10:17 125 MLS/HR Examination General Appearance: Alert, Oriented X3, Cooperative, enucleated right eye HEENT: Atraumatic, PERRLA, EOMI, Mucous membrane moist/pink Respiratory: Clear to auscultation, Normal air movement Cardiovascular: Regular rate, Normal S1, Normal S2, No murmurs, no chest wall tenderness Abdominal: Normal bowel sounds, Soft, No tenderness, No hepatospenomegaly, No masses Extremities: Left upper extremity power 0/5, left lower extremity power 4/5 Skin: No rashes, No breakdown, No significant lesion Neuro: Normal gait, Normal speech, Strength at 5/5 X4 ext, Normal tone, Sensation intact, Cranial nerves 3-12 NL, Reflexes 2+ Psych/Mental Status: Mental status NL, Mood NL laboratory and microbiology Laboratory Tests 08/22/24 05:45 Test 08/22/24 05:45 Range/Units Serum Glucose 184 #H 74-106 mg/dL Labs and/or images reviewed: Labs reviewed by me, Image(s) reviewed by me Problem List/Assessment/Plan Problem List/Assessment/Plan This is a 29-year-old male, with past medical history of diabetes type 1, CVA, schizophrenia, presented to the hospital with nausea vomiting and abdominal pain. Admitted on 08/21. Diabetic ketoacidosis Uncontrolled diabetes mellitus, Hb A1c is 9.3 SIRS, likely due to DKA Serum osmolality is 324 Blood glucose is more than 600, beta hydroxybutyric acid is raised, and the patient has DKA symptoms IV normal saline given Electrolytes corrected Patient was put on insulin drip, serum glucose and clinic status had improved, switched to the subcutaneous insulin NATASHA , baseline status undetermined, likely hemodynamically mediated, downtrending Questionable right side hydronephrosis, based on ultrasound findings IV normal saline Nephrology on the board Kidney ultrasound shows possible right side hydronephrosis Mild anemia, normocytic normochromic Monitoring History of CVA, with left-sided residual weakness Continue atorvastatin and metoprolol History of schizophrenia Continue aripiprazole History of anxiety and depression Continue bupropion, buspirone, prazosin and trazodone Hyperkalemia, monitoring Hyponatremia, likely pseudo, likely due to hyperglycemia Serum sodium is 128, corrected sodium sodium is 136 Possible subCLINIC hypothyroidism TSH is 0.26 DIET: Diabetic diet DVT PROPHYLAXIS: Lovenox GI PROPHYLAXIS:: Protonix BOWEL REGIMEN: Not indicated CODE STATUS: Goal of care discussed more than 20 minutes, full code DISPOSITION: Med/surg PATIENT'S STATUS DISCUSSED WITH the patient. CASE DISCUSSED WITH DR. Oneal Plan discussed with: Patient Date of Service: Aug 22, 2024 Billing Provider: EFREN ONEAL MD Common Visit Codes: [id number] INP/OBS CARE(HIGH) JOSE KLEIN RESDIENT Aug 22, 2024 14:07 EFREN ONEAL MD Aug 22, 2024 21:51
[2024-08-22] MEDS ORDERED: SODI1SOL PO (20:22)
[2024-08-22] MEDS ORDERED: METO25TA93 PO (20:22)
[2024-08-22] MEDS ORDERED: BUPR150T18 PO (20:22)
[2024-08-22] MEDS ORDERED: PANT40T PO (20:22)
[2024-08-22] MEDS ORDERED: ATOR40TA52 PO (20:22)
[2024-08-22] MEDS ORDERED: PRAZ1CAP2 PO (20:22)
[2024-08-22] MEDS ORDERED: BUSP30TA PO (20:22)
[2024-08-22] MEDS ORDERED: ERGO1CAP12 PO (20:22)
[2024-08-22] MEDS ORDERED: ARIP10TA29 PO (20:22)
[2024-08-22] MEDS ORDERED: TRAZ1TAB12 PO (20:22)
[2024-08-22] MEDS: ATORVASTATIN 20 MG TAB PO SCH (21:41)
[2024-08-22] MEDS: busPIRone HCL 10 MG TAB PO ONE (21:42)
[2024-08-22] MEDS: PRAZOSIN HCL 1 MG CAP PO ONE (21:42)
[2024-08-22] MEDS: traZODone HCL 50 MG TAB PO SCH (21:55)
[2024-08-23] VITALS (9 sets, daily range): BP systolic 107–168; BP diastolic 56–110; PULSE 60–82; RESP 12–20; TEMP 97.4–98.6; O2SAT 96–100
[2024-08-23] MEDS: PANTOPRAZOLE 40 MG TAB PO SCH (06:37)
[2024-08-23] MEDS: hydrALAZINE HCL 10 MG TAB PO ONE (08:36)
[2024-08-23 09:45] LABS: Basophils # (auto) 0.1 10 ^3/uL (0-0.2); Basophils % (auto) 0.8 % (0.0-2.0); Eosinophils # (auto) 0.2 10 ^3/uL (0-0.8); Eosinophils % (auto) 2.3 % (0.0-7.0); Hemoglobin 10.5 g/dL (13.5-17.5); Lymphocytes # (auto) 2.1 10 ^3/uL (0.4-5.4); Lymphocytes % (auto) 22.2 % (10.0-50.0); Mean Corpuscular Hemoglobin 28.8 pg (28.0-32.0); Mean Corpuscular Hgb Conc. 31.9 g/dL (32.0-36.0); Mean Corpuscular Volume 90.4 fL (80.0-100.0); Monocytes # (auto) 0.7 10 ^3/uL (0-1.3); Monocytes % (auto) 6.9 % (0.0-12.0); Neutrophils # (auto) 6.4 10 ^3/uL (1.6-8.6); Neutrophils % (auto) 67.8 % (37.0-80.0); Nucleated Red Blood Cells % 0.1 %; Platelet Count (auto) 417 10^3/uL (140-450); Red Blood Cells 3.65 10^6/uL (4.5-5.90); Red Cell Distribution Width 17.6 % (11.8-14.3); White Blood Cell 9.4 10^3/uL (4.4-10.8)
[2024-08-23 10:00] LABS: Alanine Aminotransferase 27 U/L (7-40); Albumin 4.4 g/dL (3.2-4.8); Anion Gap 9 (5-15); Aspartate Aminotransferase 18 U/L (13-40); BUN/Creatinine Ratio 10.8 (10.0-20.0); Blood Urea Nitrogen 22 mg/dL (9-23); Calcium 9.7 mg/dL (8.7-10.4); Carbon Dioxide 21 mmol/L (20-31); Chloride 103 mmol/L (98-107); Potassium 4.5 mmol/L (3.5-5.1)
[2024-08-23] MEDS ORDERED: PRAZOSIN HCL 1 MG CAP PO SCH (10:00)
[2024-08-23 10:01] LABS: Total Protein 7.1 g/dL (5.7-8.2)
[2024-08-23 10:09] LABS: Alkaline Phosphatase 128 U/L (46-116); Bilirubin, Total 0.2 mg/dL (0.2-1.0); Glucose 353 mg/dL (74-106); Sodium 133 mmol/L (136-145)
[2024-08-23] MEDS: buPROPion HCL 75 MG TAB PO SCH (10:33)
[2024-08-23] MEDS: ENOXAPARIN SOD 40 MG/0.4 ML SYRINGE SC SCH (10:34)
[2024-08-23] MEDS: METOPROLOL SUCCINATE XL 50 MG TAB PO SCH (10:37)
[2024-08-23] MEDS ORDERED: hydrALAZINE HCL 20 MG/ML VL IV PRN (12:00)
[2024-08-23] MEDS ORDERED: DEXTROSE (50%) 50ML SYRG IV PRN (12:30)
--- NOTE | 2024-08-23 12:34 | DVHPN2 ---
Progress Note Date Seen: Aug 23, 2024 Has the PT tested + for MRSA If YES, has PT been informed?: No Medical Necessity Reason Pt with a Central, PICC or Fol: No Subjective Patient reports: No new complaints Other Systems: Patient seen and examined by myself today in follow-up Objective vital signs Vital Sign Date Time Temp Pulse Resp B/P (MAP) Pulse Ox O2 Delivery O2 Flow Rate FiO2 08/23/24 10:37 95 152/87 08/23/24 08:58 98.6 12 100 98.6 08/22/24 20:00 Room Air* 0 21 Total Intake and Output 08/22/24 08/22/24 08/23/24 15:00 23:00 07:00 Intake Total 701.5 ml 390 ml 900 ml Output Total 850 ml 1850 ml Balance -148.5 ml 390 ml -950 ml medications Current Medications Medications Dose Ordered Sig/Dann Route Start Time Stop Time Status Last Admin Dose Admin Ondansetron HCl 4 mg Q4HP PRN IV 08/21/24 22:15 Acetaminophen 650 mg Q6HP PRN PO 08/21/24 22:15 Nitroglycerin 0.4 mg Q5MINP PRN SL 08/21/24 22:15 Morphine Sulfate 2 mg Q30M PRN IV 08/21/24 22:15 Aspirin 81 mg DAILY PO 08/22/24 10:00 08/23/24 10:33 Atorvastatin Calcium 40 mg HS PO 08/22/24 22:00 08/22/24 21:41 Sodium Chloride 1,000 ml @ 125 mls/hr Q8H IV 08/22/24 10:15 08/23/24 02:19 Pantoprazole Sodium 40 mg DAILY@0600 PO 08/23/24 06:00 08/23/24 06:37 Trazodone HCl 150 mg HS PO 08/22/24 22:00 08/22/24 21:55 Bupropion HCl 150 mg DAILY PO 08/23/24 10:00 08/23/24 10:33 Enoxaparin Sodium 40 mg DAILY SC 08/23/24 10:00 08/23/24 10:34 Metoprolol Succinate 25 mg DAILY PO 08/23/24 10:00 08/23/24 10:37 Hydralazine HCl 10 mg Q6HP PRN IV 08/23/24 12:00 Prazosin HCl 1 mg HS PO 08/23/24 22:00 Insulin Glargine 15 units BID@1000,2200 SC 08/23/24 22:00 UNV Diagnostic Test (Pha) 1 strip ACHS 08/23/24 17:00 UNV Insulin Human Regular AC SC 08/23/24 17:00 UNV Insulin Human Regular HS SC 08/23/24 22:00 UNV Dextrose 50 ml UD PRN IV 08/23/24 12:30 UNV Examination: LUNGS:Normal, CVS:Normal, MSK:Normal laboratory and microbiology Laboratory Tests 08/23/24 09:01 Test 08/23/24 09:01 Range/Units Serum Glucose 353 #H 74-106 mg/dL Problem List/Assessment/Plan Problem List/Assessment/Plan Acute kidney injury superimposed Chronic Kidney Disease secondary to Hemodynamic mediated Diabetic ketoacidosis Right eye enucleation Uncontrolled diabetes mellitus Hyperglycemia Hyponatremia due to dehydration Anemia of chronic kidney disease Recommendations Kidney function is improving Increased urine output Strict I&Os Change IV fluid to hypotonic half normal saline Kidney ultrasound reported questionable left hydronephrosis Insulin sliding scale Urology consult We will continue to follow Plan discussed with: Patient ESTHER PRESCOTT MD Aug 23, 2024 12:34
[2024-08-23] MEDS: InsuLIN REG 1unit/0.01ml Soln (100units/ml) SC ONE (12:44)
[2024-08-23] MEDS: ACCU-CHEK COMFORT CURVE STRIP VI SCH (17:06)
[2024-08-23] MEDS: InsuLIN REG 1unit/0.01ml Soln (100units/ml) SC SCH ×2 (17:09→21:37)
[2024-08-23] MEDS: PRAZOSIN HCL 1 MG CAP PO SCH (21:35)
[2024-08-23] MEDS: INSULIN LANTUS (GLARGINE) 1 /0.01ml (100units/ml) SC SCH (21:37)
--- NOTE | 2024-08-23 22:23 | DVHPN2 ---
Subjective The patient seems and examined at bedside. Blood glucose two remained high Reviewed: Care Plan, H&P, Labs, Medications, Previous Orders, Radiology Changes from previous H/P or p: No Changes Eyes: No Pain, No Vision change, No Conjunctivae inflammation, No Eyelid inflammation, No Other, No Redness ENT: No Ear pain, No Ear discharge, No Nose pain, No Nose discharge, No Nose congestion, No Mouth pain, No Mouth swelling, No Throat pain, No Throat swelling, No Other Cardiovascular: No Chest Pain, No Palpitations, No Orthopnea, No Paroxysmal Noc. Dyspnea, No Edema, No Lt Headedness, No Other Respiratory: No Cough, No Dry, No Shortness of breath, No SOB with excertion, No Wheezing, No Hemoptysis, No Pleuritic Pain, No Sputum, No Other Gastrointestinal: Nausea, Vomiting, Abdominal Pain; No Diarrhea, No Constipation, No Melena, No Hematochezia, No Other Genitourinary: No Dysuria, No Frequency, No Incontinence, No Hematuria, No Retention, No Other Musculoskeletal: No other, No neck pain, No shoulder pain, No arm pain, No back pain, No hand pain, No leg pain, No foot pain Skin: No Rash, No Lesions, No Jaundice, No Bruising, No Other Objective Vitals Vital Signs Date Time Temp Pulse Resp B/P (MAP) Pulse Ox O2 Delivery O2 Flow Rate FiO2 08/23/24 21:35 144/90 08/23/24 21:00 97.9 77 20 99 97.9 08/23/24 08:00 Room Air* 0 21 Intake/Output Intake and Output 08/23/24 07:00 Intake Total 1991.5 ml Output Total 2700 ml Balance -708.5 ml Intake Oral 1140 ml IV Total 851.5 ml Output Urine Total 2700 ml General Appearance: Alert, Oriented X3, Cooperative, No acute distress HEENT: Atraumatic, PERRLA, EOMI, Mucous membr. moist/pink Lungs: Clear to auscultation, Normal air movement Cardiovascular: Regular rate, Normal S1, Normal S2, No murmurs, Gallops, Rubs Neuro: Cranial nerves 3-12 NL Psych/Mental Status: Mental status NL Medications Current Medications Medications Dose Ordered Sig/Dann Route Start Time Stop Time Status Last Admin Dose Admin Ondansetron HCl 4 mg Q4HP PRN IV 08/21/24 22:15 Acetaminophen 650 mg Q6HP PRN PO 08/21/24 22:15 Nitroglycerin 0.4 mg Q5MINP PRN SL 08/21/24 22:15 Morphine Sulfate 2 mg Q30M PRN IV 08/21/24 22:15 Aspirin 81 mg DAILY PO 08/22/24 10:00 08/23/24 10:33 81 MG Atorvastatin Calcium 40 mg HS PO 08/22/24 22:00 08/23/24 21:30 40 MG Sodium Chloride 1,000 ml @ 125 mls/hr Q8H IV 08/22/24 10:15 08/23/24 14:16 125 MLS/HR Pantoprazole Sodium 40 mg DAILY@0600 PO 08/23/24 06:00 08/23/24 06:37 40 MG Trazodone HCl 150 mg HS PO 08/22/24 22:00 08/23/24 21:31 150 MG Bupropion HCl 150 mg DAILY PO 08/23/24 10:00 08/23/24 10:33 150 MG Enoxaparin Sodium 40 mg DAILY SC 08/23/24 10:00 08/23/24 10:34 40 MG Metoprolol Succinate 25 mg DAILY PO 08/23/24 10:00 08/23/24 10:37 25 MG Hydralazine HCl 10 mg Q6HP PRN IV 08/23/24 12:00 Prazosin HCl 1 mg HS PO 08/23/24 22:00 08/23/24 21:35 1 MG Insulin Glargine 15 units BID@1000,2200 SC 08/23/24 22:00 08/23/24 21:37 15 UNITS Diagnostic Test (Pha) 1 strip ACHS 08/23/24 17:00 08/23/24 21:35 1 STRIP Insulin Human Regular AC SC 08/23/24 17:00 08/23/24 17:09 2 UNITS Insulin Human Regular HS SC 08/23/24 22:00 08/23/24 21:37 2 UNITS Dextrose 50 ml UD PRN IV 08/23/24 12:30 Laboratory Results Laboratory Tests 08/23/24 09:01 Chemistry Test 08/23/24 09:01 Albumin 4.4 g/dL (3.2-4.8) Calcium Level 9.7 mg/dL (8.7-10.4) Total Protein 7.1 g/dL (5.7-8.2) Lipid panel Test 08/23/24 09:01 Lipase 83 U/L (12-53) H LFT Test 08/23/24 09:01 Alanine Aminotransferase (ALT) 27 U/L (7-40) Alkaline Phosphatase 128 U/L (46-116) H Aspartate Amino Transferase (AST) 18 U/L (13-40) Total Bilirubin 0.2 mg/dL (0.2-1.0) Urinalysis Test 08/22/24 02:07 Urine Color Straw (Yellow) Urine Clarity Clear (Clear) Urine pH 7.0 (5.0-9.0) Urine Specific [place] 1.022 (1.001-1.035) Urine Protein Negative (Negative) Urine Ketones 1+ (Negative) H Urine Blood Negative /uL (Negative) Urine Nitrite Negative (Negative) Urine Bilirubin Negative (Negative) Urine Urobilinogen Normal mg/dL (Negative) Urine Leukocyte Esterase Negative /uL (Negative) Urine RBC 1 /hpf (0 - 3) Urine WBC None seen /hpf (0 - 3) Urine Squamous Epithelial Cells None seen /hpf (<5) Urine Bacteria None seen /hpf (None Seen) Urine Yeast (Budding) Occasional /hpf (None Urine Creatinine 30.55 mg/dL (30.0-125.0) Urine Sodium 36 mmol/L (40-220) L Urine Glucose 4+ mg/dL (Normal) H Urine Total Protein 17.3 mg/dL (1-14) H Microbiology Microbiology Date/Time Source Procedure Growth Status 08/22/24 21:05 Nose MRSA Screen - Final Complete Labs and/or images reviewed: Labs reviewed by me Assessment/Plan Assessment/Plan Diabetic ketoacidosis Uncontrolled diabetes mellitus, Hb A1c is 9.3 SIRS, likely due to DKA Serum osmolality is 324 Blood glucose is more than 600, beta hydroxybutyric acid is raised, and the patient has DKA symptoms IV normal saline given Electrolytes corrected Patient was put on insulin drip, serum glucose and clinic status had improved, switched to the subcutaneous insulin NATASHA , baseline status undetermined, likely hemodynamically mediated, downtrending Questionable right side hydronephrosis, based on ultrasound findings IV normal saline Nephrology on the board Kidney ultrasound shows possible right side hydronephrosis Mild anemia, normocytic normochromic Monitoring History of CVA, with left-sided residual weakness Continue atorvastatin and metoprolol History of schizophrenia Continue aripiprazole History of anxiety and depression Continue bupropion, buspirone, prazosin and trazodone Hyperkalemia, monitoring Hyponatremia, likely pseudo, likely due to hyperglycemia Serum sodium is 128, corrected sodium sodium is 136 Possible subCLINIC hypothyroidism TSH is 0.26 DIET: Diabetic diet DVT PROPHYLAXIS: Lovenox GI PROPHYLAXIS:: Protonix BOWEL REGIMEN: Not indicated CODE STATUS: full code Continuing current management. I will add Lantus to his regimen with Lantus 15 units subQ twice per day. I also will increase his sliding scale insulin to high dose. Plan discussed with: Patient My Orders Orders - EFREN ONEAL MD Procedure Category Date Status Time Insulin Lantus PHA 08/23/24 In Process (Glargine) (Lantus) 22:00 Glucose Blood PHA 08/23/24 In Process (Accu-Chek Comfort 17:00 Insulin R (Human) PHA 08/23/24 In Process (Insulin R) 17:00 Insulin R (Human) PHA 08/23/24 In Process (Insulin R) 22:00 Dextrose 50% Syringe PHA 08/23/24 In Process 12:30 Date of Service: Aug 23, 2024 Billing Provider: EFREN ONEAL MD Common Visit Codes: [id number] INP/OBS CARE(HIGH) EFREN ONEAL MD Aug 23, 2024 22:23
[2024-08-24] VITALS (7 sets, daily range): BP systolic 111–133; BP diastolic 64–94; PULSE 70–81; RESP 14–19; TEMP 97.5–98.4; O2SAT 95–100
[2024-08-24] MEDS: INSULIN LANTUS (GLARGINE) 1 /0.01ml (100units/ml) SC SCH (10:08)
[2024-08-24 11:11] LABS: Basophils # (auto) 0.1 10 ^3/uL (0-0.2); Eosinophils # (auto) 0.1 10 ^3/uL (0-0.8); Eosinophils % (auto) 2.1 % (0.0-7.0); Hemoglobin 9.1 g/dL (13.5-17.5); Lymphocytes # (auto) 1.9 10 ^3/uL (0.4-5.4); Lymphocytes % (auto) 27.3 % (10.0-50.0); Mean Corpuscular Hemoglobin 28.3 pg (28.0-32.0); Mean Corpuscular Hgb Conc. 31.5 g/dL (32.0-36.0); Mean Corpuscular Volume 89.8 fL (80.0-100.0); Monocytes # (auto) 0.5 10 ^3/uL (0-1.3); Monocytes % (auto) 7.4 % (0.0-12.0); Neutrophils # (auto) 4.4 10 ^3/uL (1.6-8.6); Neutrophils % (auto) 62.2 % (37.0-80.0); Nucleated Red Blood Cells % 0.1 %; Platelet Count (auto) 440 10^3/uL (140-450); Red Blood Cells 3.23 10^6/uL (4.5-5.90); Red Cell Distribution Width 17.3 % (11.8-14.3)
[2024-08-24 11:32] LABS: Alanine Aminotransferase 22 U/L (7-40); Albumin 4.1 g/dL (3.2-4.8); Alkaline Phosphatase 107 U/L (46-116); Anion Gap 6 (5-15); Aspartate Aminotransferase 18 U/L (13-40); BUN/Creatinine Ratio 9.8 (10.0-20.0); Blood Urea Nitrogen 19 mg/dL (9-23); Calcium 9.2 mg/dL (8.7-10.4); Carbon Dioxide 21 mmol/L (20-31); Potassium 4.6 mmol/L (3.5-5.1)
[2024-08-24 11:33] LABS: Total Protein 6.5 g/dL (5.7-8.2)
[2024-08-24 11:34] LABS: Bilirubin, Total 0.2 mg/dL (0.2-1.0); Chloride 108 mmol/L (98-107); Glucose 207 mg/dL (74-106); Sodium 135 mmol/L (136-145)
[2024-08-24 13:53] LABS: Free T3 3.3 pg/mL (2.3-4.2); Free T4 (Free Thyroxine) 1.12 ng/dL (0.89-1.76)
--- NOTE | 2024-08-24 16:05 | DVHPN2 ---
Progress Note Date Seen: Aug 24, 2024 Has the PT tested + for MRSA If YES, has PT been informed?: No Medical Necessity Reason Pt with a Central, PICC or Fol: No Subjective Patient reports: Feels better Review of Systems: GI:Abnormal Objective vital signs Vital Sign Date Time Temp Pulse Resp B/P (MAP) Pulse Ox O2 Delivery O2 Flow Rate FiO2 08/24/24 12:28 97.7 76 16 121/80 (94) 100 97.7 08/24/24 08:29 Room Air* 0 21 Total Intake and Output 08/23/24 08/23/24 08/24/24 15:00 23:00 07:00 Intake Total 1000 ml 1226 ml 875 ml Output Total 600 ml Balance 1000 ml 1226 ml 275 ml medications Current Medications Medications Dose Ordered Sig/Dann Route Start Time Stop Time Status Last Admin Dose Admin Ondansetron HCl 4 mg Q4HP PRN IV 08/21/24 22:15 Acetaminophen 650 mg Q6HP PRN PO 08/21/24 22:15 Nitroglycerin 0.4 mg Q5MINP PRN SL 08/21/24 22:15 Morphine Sulfate 2 mg Q30M PRN IV 08/21/24 22:15 Aspirin 81 mg DAILY PO 08/22/24 10:00 08/24/24 10:13 81 MG Atorvastatin Calcium 40 mg HS PO 08/22/24 22:00 08/23/24 21:30 40 MG Pantoprazole Sodium 40 mg DAILY@0600 PO 08/23/24 06:00 08/24/24 05:56 40 MG Trazodone HCl 150 mg HS PO 08/22/24 22:00 08/23/24 21:31 150 MG Bupropion HCl 150 mg DAILY PO 08/23/24 10:00 08/24/24 10:14 150 MG Enoxaparin Sodium 40 mg DAILY SC 08/23/24 10:00 08/24/24 10:14 40 MG Metoprolol Succinate 25 mg DAILY PO 08/23/24 10:00 08/24/24 10:14 25 MG Hydralazine HCl 10 mg Q6HP PRN IV 08/23/24 12:00 Prazosin HCl 1 mg HS PO 08/23/24 22:00 08/23/24 21:35 1 MG Diagnostic Test (Pha) 1 strip ACHS 08/23/24 17:00 08/24/24 11:31 1 STRIP Insulin Human Regular AC SC 08/23/24 17:00 08/24/24 11:32 8 UNITS Insulin Human Regular HS SC 08/23/24 22:00 08/23/24 21:37 2 UNITS Dextrose 50 ml UD PRN IV 08/23/24 12:30 Insulin Glargine 20 units BID@1000,2200 SC 08/24/24 07:15 08/24/24 10:20 20 UNITS Examination: GENERAL:Normal, CVS:Normal, ABDOMEN:Normal laboratory and microbiology Laboratory Tests 08/24/24 10:54 Test 08/24/24 10:54 Range/Units Serum Glucose 207 #H 74-106 mg/dL Microbiology Date/Time Source Procedure Growth Status 08/22/24 21:05 Nose MRSA Screen - Final Complete Problem List/Assessment/Plan Problem List/Assessment/Plan Acute kidney injury ckd unspecified unknown baseline Diabetic ketoacidosis Right eye enucleation Uncontrolled diabetes mellitus Hyperglycemia Hyponatremia due to dehydration Anemia of chronic kidney disease Recommendations Kidney function is improving Increased urine output Strict I&Os IV fluid to hypotonic half normal saline Kidney ultrasound reported questionable left hydronephrosis Insulin sliding scale Urology consult We will continue to follow Plan discussed with: Patient TY AREVALO MD Aug 24, 2024 16:05
--- NOTE | 2024-08-24 17:40 | DVHPNRES ---
Progress Note Date Seen: Aug 24, 2024 Resident Creating Document: JOSE KLEIN TALITA Has the PT tested + for MRSA If YES, has PT been informed?: No Medical Necessity Reason Pt with a Central, PICC or Fol: No Subjective Review of Systems This is a 29-year-old male with a past medical history of type 1 diabetes mellitus, CVA with left-sided weakness, and schizophrenia who presented to the ED with a chief complaint of hyperglycemia. The patient states that he has been having abdominal discomfort with a few episodes of nausea and vomiting for the last 2 days and has been compliant with his insulin. The patient denies headache, flu-like symptoms, productive cough, chest pain, dizziness, diaphoresis, any change in bowel and bladder habits, dysuria, sick contacts, or any recent traveling. On admission, the blood sugar was 600 with a normal anion gap and increased beta-hydroxybutyric acid. 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 The patient is using for the walking due to left-sided residual weakness Home medication: Metoprolol succinate ER 25 mg daily, prazosin 1 mg HS, buspirone 30 mg daily, trazodone 150 mg during the night, Protonix 40 mg daily, bupropion 150 mg daily, aripiprazole 10 mg daily, atorvastatin 40 mg during the night Today, patient seen and examined at the bedside. Patient is feeling better. Patient LFTs cells raised and glucose is at 400. Patient reports: Feels better Changes from previous H/P or p: No Changes, Changes Objective vital signs Vital Sign Date Time Temp Pulse Resp B/P (MAP) Pulse Ox O2 Delivery O2 Flow Rate FiO2 08/24/24 16:26 98.4 81 16 133/76 (95) 100 98.4 08/24/24 08:29 Room Air* 0 21 Total Intake and Output 08/23/24 08/23/24 08/24/24 15:00 23:00 07:00 Intake Total 1000 ml 1226 ml 875 ml Output Total 600 ml Balance 1000 ml 1226 ml 275 ml medications Current Medications Medications Dose Ordered Sig/Dann Route Start Time Stop Time Status Last Admin Dose Admin Ondansetron HCl 4 mg Q4HP PRN IV 08/21/24 22:15 Acetaminophen 650 mg Q6HP PRN PO 08/21/24 22:15 Nitroglycerin 0.4 mg Q5MINP PRN SL 08/21/24 22:15 Morphine Sulfate 2 mg Q30M PRN IV 08/21/24 22:15 Aspirin 81 mg DAILY PO 08/22/24 10:00 08/24/24 10:13 81 MG Atorvastatin Calcium 40 mg HS PO 08/22/24 22:00 08/23/24 21:30 40 MG Pantoprazole Sodium 40 mg DAILY@0600 PO 08/23/24 06:00 08/24/24 05:56 40 MG Trazodone HCl 150 mg HS PO 08/22/24 22:00 08/23/24 21:31 150 MG Bupropion HCl 150 mg DAILY PO 08/23/24 10:00 08/24/24 10:14 150 MG Enoxaparin Sodium 40 mg DAILY SC 08/23/24 10:00 08/24/24 10:14 40 MG Metoprolol Succinate 25 mg DAILY PO 08/23/24 10:00 08/24/24 10:14 25 MG Hydralazine HCl 10 mg Q6HP PRN IV 08/23/24 12:00 Prazosin HCl 1 mg HS PO 08/23/24 22:00 08/23/24 21:35 1 MG Diagnostic Test (Pha) 1 strip ACHS 08/23/24 17:00 08/24/24 11:31 1 STRIP Insulin Human Regular AC SC 08/23/24 17:00 08/24/24 11:32 8 UNITS Insulin Human Regular HS SC 08/23/24 22:00 08/23/24 21:37 2 UNITS Dextrose 50 ml UD PRN IV 08/23/24 12:30 Insulin Glargine 20 units BID@1000,2200 SC 08/24/24 07:15 08/24/24 10:20 20 UNITS Examination General Appearance: Alert, Oriented X3, Cooperative, enucleated right eye HEENT: Atraumatic, PERRLA, EOMI, Mucous membrane moist/pink Respiratory: Clear to auscultation, Normal air movement Cardiovascular: Regular rate, Normal S1, Normal S2, No murmurs, no chest wall tenderness Abdominal: Normal bowel sounds, Soft, No tenderness, No hepatospenomegaly, No masses Extremities: Left upper extremity power 0/5, left lower extremity power 4/5 Skin: No rashes, No breakdown, No significant lesion Neuro: Normal gait, Normal speech, Strength at 5/5 X4 ext, Normal tone, Sensation intact, Cranial nerves 3-12 NL, Reflexes 2+ Psych/Mental Status: Mental status NL, Mood NL laboratory and microbiology Laboratory Tests 08/24/24 10:54 Test 08/24/24 10:54 Range/Units Serum Glucose 207 #H 74-106 mg/dL Microbiology Date/Time Source Procedure Growth Status 08/22/24 21:05 Nose MRSA Screen - Final Complete Labs and/or images reviewed: Labs reviewed by me, Image(s) reviewed by me Problem List/Assessment/Plan Problem List/Assessment/Plan This is a 29-year-old male, with past medical history of diabetes type 1, CVA, schizophrenia, presented to the hospital with nausea vomiting and abdominal pain. Admitted on 08/21. Diabetic ketoacidosis Uncontrolled diabetes mellitus, Hb A1c is 9.3 SIRS, likely due to DKA Serum osmolality is 324 Blood glucose is more than 600, beta hydroxybutyric acid is raised, and the patient has DKA symptoms IV normal saline given Electrolytes corrected Patient was put on insulin drip, serum glucose and clinic status had improved, switched to the subcutaneous insulin Continue Lantus 20 units subcutaneous during the day, with aggressive sliding scale Provide diabetic education NATASHA , baseline status undetermined, likely hemodynamically mediated, downtrending Questionable right side hydronephrosis, based on ultrasound findings IV normal saline Nephrology on the board Kidney ultrasound shows possible right side hydronephrosis Mild anemia, normocytic normochromic Monitoring History of CVA, with left-sided residual weakness Continue atorvastatin and metoprolol History of schizophrenia Continue aripiprazole History of anxiety and depression Continue bupropion, buspirone, prazosin and trazodone Hyperkalemia, monitoring Hyponatremia, likely pseudo, likely due to hyperglycemia Serum sodium is 128, corrected sodium sodium is 136 Possible subCLINIC hypothyroidism TSH is 0.26 DIET: Diabetic diet DVT PROPHYLAXIS: Lovenox GI PROPHYLAXIS:: Protonix BOWEL REGIMEN: Not indicated CODE STATUS: Goal of care discussed more than 20 minutes, full code DISPOSITION: Med/surg Today, patients status improved but still LFTs are raised and serum glucoses is at 400. PATIENT'S STATUS DISCUSSED WITH the patient. CASE DISCUSSED WITH DR. Winters Plan discussed with: Patient, Other (RN) My Orders My Orders Orders - JOSE KLEIN Procedure Category Date Status Time Insulin Lantus PHA 08/24/24 In Process (Glargine) (Lantus) 07:15 Date of Service: Aug 24, 2024 Billing Provider: VASILE WINTERS MD Common Visit Codes: [id number] INP/OBS CARE(HIGH) JOSE KLEIN RESDIENT Aug 24, 2024 17:40 VASILE WINTERS MD Aug 24, 2024 20:15
[2024-08-24] MEDS: ERGOCALCIFEROL 50,000 UNIT(1.25MG) CAP PO SCH (21:00)
[2024-08-24] MEDS: CYANOCOBALAMIN (B-12) 1000 MCG/1 ML VIAL IM ONE (22:00)
[2024-08-25 04:53] VITALS: BP 121/73; PULSE 98; RESP 16; TEMP 97.6; O2SAT 99
[2024-08-25 06:53] LABS: Basophils # (auto) 0.1 10 ^3/uL (0-0.2); Basophils % (auto) 1.1 % (0.0-2.0); Eosinophils # (auto) 0.2 10 ^3/uL (0-0.8); Eosinophils % (auto) 2.6 % (0.0-7.0); Hematocrit 27.8 % (41.0-53.0); Hemoglobin 9.1 g/dL (13.5-17.5); Lymphocytes # (auto) 2.4 10 ^3/uL (0.4-5.4); Mean Corpuscular Hemoglobin 28.8 pg (28.0-32.0); Mean Corpuscular Hgb Conc. 32.8 g/dL (32.0-36.0); Mean Corpuscular Volume 87.8 fL (80.0-100.0); Monocytes # (auto) 0.7 10 ^3/uL (0-1.3); Monocytes % (auto) 8.7 % (0.0-12.0); Neutrophils # (auto) 4.4 10 ^3/uL (1.6-8.6); Neutrophils % (auto) 56.6 % (37.0-80.0); Platelet Count (auto) 403 10^3/uL (140-450); Red Blood Cells 3.17 10^6/uL (4.5-5.90); Red Cell Distribution Width 17.4 % (11.8-14.3); White Blood Cell 7.8 10^3/uL (4.4-10.8)
[2024-08-25 07:02] LABS: Anion Gap 7 (5-15); Calcium 9.3 mg/dL (8.7-10.4); Carbon Dioxide 23 mmol/L (20-31); Potassium 4.4 mmol/L (3.5-5.1); Sodium 142 mmol/L (136-145)
[2024-08-25 07:08] LABS: BUN/Creatinine Ratio 11.4 (10.0-20.0); Blood Urea Nitrogen 20 mg/dL (9-23)
[2024-08-25 07:11] LABS: Chloride 112 mmol/L (98-107); Glucose 61 mg/dL (74-106)
[2024-08-25 08:00] VITALS: PULSE 76; RESP 14; O2SAT 97
[2024-08-25 08:34] VITALS: BP 115/53; PULSE 76; RESP 14; TEMP 98.8; O2SAT 97
--- NOTE | 2024-08-25 13:32 | DVHPN2 ---
Progress Note Date Seen: Aug 25, 2024 Has the PT tested + for MRSA If YES, has PT been informed?: No Medical Necessity Reason Pt with a Central, PICC or Fol: No Subjective Patient reports: Feels better Review of Systems: CVS:Normal Objective vital signs Vital Sign Date Time Temp Pulse Resp B/P (MAP) Pulse Ox O2 Delivery O2 Flow Rate FiO2 08/25/24 10:00 76 115/53 08/25/24 08:34 98.8 14 97 98.8 08/25/24 08:00 Room Air* 0 21 Total Intake and Output 08/24/24 08/24/24 08/25/24 15:00 23:00 07:00 Intake Total 970 ml 650 ml Output Total 800 ml Balance 970 ml -150 ml medications Current Medications Medications Dose Ordered Sig/Dann Route Start Time Stop Time Status Last Admin Dose Admin Ondansetron HCl 4 mg Q4HP PRN IV 08/21/24 22:15 Acetaminophen 650 mg Q6HP PRN PO 08/21/24 22:15 Nitroglycerin 0.4 mg Q5MINP PRN SL 08/21/24 22:15 Morphine Sulfate 2 mg Q30M PRN IV 08/21/24 22:15 Aspirin 81 mg DAILY PO 08/22/24 10:00 08/25/24 09:33 81 MG Atorvastatin Calcium 40 mg HS PO 08/22/24 22:00 08/24/24 21:15 40 MG Pantoprazole Sodium 40 mg DAILY@0600 PO 08/23/24 06:00 08/25/24 05:55 40 MG Trazodone HCl 150 mg HS PO 08/22/24 22:00 08/24/24 21:14 150 MG Bupropion HCl 150 mg DAILY PO 08/23/24 10:00 08/25/24 09:33 150 MG Enoxaparin Sodium 40 mg DAILY SC 08/23/24 10:00 08/25/24 09:34 40 MG Metoprolol Succinate 25 mg DAILY PO 08/23/24 10:00 08/24/24 10:14 25 MG Hydralazine HCl 10 mg Q6HP PRN IV 08/23/24 12:00 Prazosin HCl 1 mg HS PO 08/23/24 22:00 08/24/24 21:14 1 MG Diagnostic Test (Pha) 1 strip ACHS 08/23/24 17:00 08/25/24 12:42 1 STRIP Insulin Human Regular AC SC 08/23/24 17:00 08/25/24 12:43 2 UNITS Insulin Human Regular HS SC 08/23/24 22:00 08/24/24 22:06 3 UNITS Dextrose 50 ml UD PRN IV 08/23/24 12:30 Insulin Glargine 20 units BID@1000,2200 SC 08/24/24 07:15 08/24/24 22:06 20 UNITS Ergocalciferol 50,000 unit Q7D PO 08/24/24 21:00 08/24/24 21:00 50,000 UNIT Examination: GENERAL:Normal, HEENT:Normal, NECK:Normal, CVS:Normal, ABDOMEN:Normal, :Abnormal laboratory and microbiology Laboratory Tests 08/25/24 05:48 Test 08/25/24 05:48 Range/Units Serum Glucose 61 #L 74-106 mg/dL Microbiology Date/Time Source Procedure Growth Status 08/22/24 21:05 Nose MRSA Screen - Final Complete Problem List/Assessment/Plan Problem List/Assessment/Plan Acute kidney injury ckd unspecified unknown baseline Diabetic ketoacidosis Right eye enucleation Uncontrolled diabetes mellitus Hyperglycemia Hyponatremia due to dehydration Anemia of chronic kidney disease Recommendations Kidney function is improving Increased urine output Strict I&Os IV fluid to hypotonic half normal saline Kidney ultrasound reported questionable left hydronephrosis Insulin sliding scale Urology consult will sign off case now that NATASHA resolving Plan discussed with: Patient TY AREVALO MD Aug 25, 2024 13:32
--- NOTE | 2024-08-25 14:05 | DVHDSRES ---
Discharge Summary Date of Admission Resident Creating Document: JOSE KLEIN RESDILEIGHTON Aug 21, 2024 at 22:13 Date of Discharge: Aug 25, 2024 Admitting Diagnosis Hyperglycemia with metabolic acidosis Labs/Diagnostic Data: Laboratory Results Test 08/25/24 12:32 08/25/24 05:48 08/24/24 10:54 08/23/24 09:01 POC Glucose 137 mg/dl (70-106) White Blood Count 7.8 10^3/uL (4.4-10.8) Red Blood Count 3.17 10^6/uL (4.5-5.90) Hemoglobin 9.1 g/dL (13.5-17.5) Hematocrit 27.8 % (41.0-53.0) Mean Corpuscular Volume 87.8 fL (80.0-100.0) Mean Corpuscular Hemoglobin 28.8 pg (28.0-32.0) Mean Corpuscular Hemoglobin Concent 32.8 g/dL (32.0-36.0) Red Cell Distribution Width 17.4 % (11.8-14.3) Platelet Count 403 10^3/uL (140-450) Mean Platelet Volume 7.2 fL (6.9-10.8) Neutrophils (%) (Auto) 56.6 % (37.0-80.0) Lymphocytes (%) (Auto) 31.0 % (10.0-50.0) Monocytes (%) (Auto) 8.7 % (0.0-12.0) Eosinophils (%) (Auto) 2.6 % (0.0-7.0) Basophils (%) (Auto) 1.1 % (0.0-2.0) Neutrophils # (Auto) 4.4 10 ^3/uL (1.6-8.6) Lymphocytes # (Auto) 2.4 10 ^3/uL (0.4-5.4) Monocytes # (Auto) 0.7 10 ^3/uL (0-1.3) Eosinophils # (Auto) 0.2 10 ^3/uL (0-0.8) Basophils # (Auto) 0.1 10 ^3/uL (0-0.2) Nucleated Red Blood Cells 0.0 % Sodium Level 142 mmol/L (136-145) Potassium Level 4.4 mmol/L (3.5-5.1) Chloride Level 112 mmol/L (98-107) Carbon Dioxide Level 23 mmol/L (20-31) Anion Gap 7 (5-15) Blood Urea Nitrogen 20 mg/dL (9-23) Creatinine 1.76 mg/dL (0.700-1.30) Glomerular Filtration Rate Calc 53 mL/min (>90) BUN/Creatinine Ratio 11.4 (10.0-20.0) Serum Glucose 61 mg/dL (74-106) Calcium Level 9.3 mg/dL (8.7-10.4) Total Bilirubin 0.2 mg/dL (0.2-1.0) Aspartate Amino Transferase (AST) 18 U/L (13-40) Alanine Aminotransferase (ALT) 22 U/L (7-40) Alkaline Phosphatase 107 U/L (46-116) Total Protein 6.5 g/dL (5.7-8.2) Albumin 4.1 g/dL (3.2-4.8) Vitamin B12 Level 780 pg/mL (211-911) Free Thyroxine (T4) Calculated 1.12 ng/dL (0.89-1.76) Free Triiodothyronine (T3) pg/mL 3.30 pg/mL (2.3-4.2) Lipase 83 U/L (12-53) Test 08/22/24 08:36 08/22/24 05:45 08/22/24 04:58 08/22/24 02:07 Blood Gas Specimen Type Arterial Blood Gas Sample Site Right radial Blood Gas Patient Temperature 37.0 Arterial Blood Date Drawn [id number] Arterial Blood pH 7.418 (7.350-7.450) Arterial Blood Partial Pressure CO2 38.2 mmHg (35.0-48.0) Arterial Blood Partial Pressure O2 59.3 mmHg (83.0-108.0) Arterial Blood HCO3 24.1 mmol/L (21.0-28.0) Arterial Blood Oxygen Saturation 91.0 % (94.0-98.0) Arterial Blood Base Excess -0.3 mmol/L (-2.0-3.0) Arterial Blood Oxyhemoglobin 89.6 % (94.0-98.0) Arterial Blood Carboxyhemoglobin 1.2 % (0.5-1.5) Arterial Blood Methemoglobin 0.3 % (0.0-1.5) Ryan Test Yes Blood Gas Total Hemoglobin 9.90 g/dL (13.5-17.5) Blood Gas Modality Room air FiO2 % 21.0 Hemoglobin A1c 9.3 % A1C (<5.7) Phosphorus Level 3.8 mg/dL (2.4-5.1) Vitamin D 25-Hydroxy 40.9 ng/mL (30.0-100) Thyroid Stimulating Hormone (TSH) 0.26 uIU/mL (0.55-4.78) Parathyroid Hormone (Intact) 144.4 pg/mL (18.4-80.1) Influenza Type A Antigen Negative (Negative) Influenza Type B Antigen Negative (Negative) Urine Color Straw (Yellow) Urine Clarity Clear (Clear) Urine pH 7.0 (5.0-9.0) Urine Specific [place] 1.022 (1.001-1.035) Urine Protein Negative (Negative) Urine Ketones 1+ (Negative) Urine Blood Negative /uL (Negative) Urine Nitrite Negative (Negative) Urine Bilirubin Negative (Negative) Urine Urobilinogen Normal mg/dL (Negative) Urine Leukocyte Esterase Negative /uL (Negative) Urine RBC 1 /hpf (0 - 3) Urine WBC None seen /hpf (0 - 3) Urine Squamous Epithelial Cells None seen /hpf (<5) Urine Bacteria None seen /hpf (None Seen) Urine Yeast (Budding) Occasional /hpf (None Urine Creatinine 30.55 mg/dL (30.0-125.0) Urine Sodium 36 mmol/L (40-220) Urine Glucose 4+ mg/dL (Normal) Urine Total Protein 17.3 mg/dL (1-14) Test 08/22/24 00:00 08/21/24 19:06 08/21/24 19:00 SARS-CoV-2 Antigen (Rapid) Negative (NEGATIVE) Serum Osmolality 324 mOsm/kg (278-298) Magnesium Level 2.0 mg/dL (1.6-2.6) Beta-Hydroxybutyric Acid 1.765 mmol/L (< 0.4) Venous Blood pH 7.333 (7.320-7.430) Venous Blood pCO2 at Patient Temp 44.8 mmHg (38.0-54.0) Venous Blood pO2 at Patient Temp < 36.5 mmHg (23.0-48.0) Venous Blood HCO3 23.2 mmol/L (22.0-29.0) Venous Blood Base Excess -2.8 mmol/L (-2.0-3.0) Other Laboratory Tests 08/25/24 05:48 Brief Hx & Hospital Course: This is a 29-year-old male with a past medical history of type 1 diabetes mellitus, CVA with left-sided weakness, and schizophrenia who presented to the ED with a chief complaint of hyperglycemia. The patient states that he has been having abdominal discomfort with a few episodes of nausea and vomiting for the last 2 days and has been compliant with his insulin. The patient denies headache, flu-like symptoms, productive cough, chest pain, dizziness, diaphoresis, any change in bowel or bladder habits, dysuria, sick contacts, or any recent travel. On admission, his blood sugar was 600 with a normal anion gap and increased beta-hydroxybutyric acid. His past medical history includes diabetes type 1, CVA with residual left-sided weakness, and schizophrenia. 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 His family history is noncontributory. Socially, the patient smokes, uses marijuana, drinks socially, and denies any other drug use. He uses a cane for walking due to left-sided residual weakness. His home medications include metoprolol succinate ER 25 mg daily, prazosin 1 mg HS, buspirone 30 mg daily, trazodone 150 mg at night, Protonix 40 mg daily, bupropion 150 mg daily, aripiprazole 10 mg daily, and atorvastatin 40 mg at night. On lab studies the patient glucose was more than 600, raised beta hydroxybutyric acid and ABGs shows metabolic acidosis. The patient was put on DKA protocol including insulin drip and repleted the electrolytes. L patient's glucose normalized, beta hydroxybutyric acid decreased, and acidosis was improved. Patient's symptoms had improved and the patient was switched to subcutaneous insulin. And oral intake was charted. Due to impaired RFT, nephrology was consulted and recommended conservative treatment. During hospital admission patient's home medication for the CVA, schizophrenia, and anxiety depression was continued. On 08/25, the patient was feeling better and clinically and hemodynamically stable. Discharge plan discussed with the patient and the patient was discharged. Discharge plan: Follow up with the PCP within 1 week of the discharge. Follow up with the discharge Clinic within 1 week of the discharge. Patient was counseled, for medication compliance, and risk of not using regularly the medicine. Diabetic education provided to the patient. Operations or Procedures [place] [id number] Ph: [phone] DIAGNOSTIC IMAGING Diagnostic Imaging Report : [id number] Signed PATIENT: LIAM MORELT: [id number] UNIT: [id number] : 1995 LOC: OVERFLOW ROOM / BED: 1010-ER / A AGE / SEX: 29 / M ADM STATUS: ADM IN SERVICE 0038 ORDERING PHYSICIAN: DAVI ANDERSON PROCEDURE(s): KIDUS - KIDNEY REASON: NATASHA on CKD ORDER NUMBER(s): [id number], ACCESSION NUMBER(s): [id number] INDICATION: NATASHA on CKD TECHNIQUE: Multiple real-time sonographic images of the kidneys and bladder were obtained. COMPARISON: None FINDINGS: The right kidney measures 11 cm in length. The right renal echogenicity, contour and cortical thickness are within normal limits. No hydronephrosis or large masses/calculi are seen. The left kidney measures 9.6 cm in length. The left renal echogenicity, contour, and cortical thickness are within normal limits. Questionable mild hydronephrosis. No calculi. No large intraluminal masses are seen in the bladder. IMPRESSION: 1. Questionable mild left-sided hydronephrosis ATED BY: RADHA MALDONADO MD DICTATED DATE/TIME: 08/22/24120 SIGNED BY: RADHA MALDONADO MD SIGNED DATE/TIME: 08/22/24120 CC: [place] [id number] Ph: [phone] DIAGNOSTIC IMAGING Diagnostic Imaging Report : [id number] Signed PATIENT: LIAM MORELT: [id number] UNIT: [id number] : 1995 LOC: OVERFLOW ROOM / BED: 1010-ER / A AGE / SEX: 29 / M ADM STATUS: ADM IN SERVICE ORDERING PHYSICIAN: DAVI ANDERSON PROCEDURE(s): CXR1 - CHEST XRAY 1 VIEW REASON: chest pain ORDER NUMBER(s): [id number], ACCESSION NUMBER(s): [id number] CHEST RADIOGRAPH Indication: chest pain Technique: Single frontal view of the chest was obtained COMPARISON: None FINDINGS: Lines and Tubes: None Lungs: Clear Pleura: No effusion. No pneumothorax. Cardiomediastinal contours: Unremarkable Bones: Unremarkable IMPRESSION: 1. No acute disease. ATED BY: RADHA MALDONADO MD DICTATED DATE/TIME: 08/21/242237 SIGNED BY: RADHA MALDONADO MD SIGNED DATE/TIME: 08/21/242237 CC: [place] [id number] Ph: [phone] DIAGNOSTIC IMAGING Diagnostic Imaging Report : [id number] Signed PATIENT: HOLLIE MORELCCT: [id number] UNIT: [id number] : 1995 [facility] SEX: 29 / M ADM STATUS: ADM IN SERVICE 21 ORDERING PHYSICIAN: DAVI ANDERSON PROCEDURE(s): CXR1 - CHEST XRAY 1 VIEW REASON: chest pain ORDER NUMBER(s): [id number], ACCESSION NUMBER(s): [id number] CHEST RADIOGRAPH Indication: chest pain Technique: Single frontal view of the chest was obtained COMPARISON: None FINDINGS: Lines and Tubes: None Lungs: Clear Pleura: No effusion. No pneumothorax. Cardiomediastinal contours: Unremarkable Bones: Unremarkable IMPRESSION: 1. No acute disease. ATED BY: RADHA MALDONADO MD DICTATED DATE/TIME: 08/21/242237 SIGNED BY: RADHA MALDONADO MD SIGNED DATE/TIME: 08/21/242237 CC: Condition at Discharge: Good Final Diagnosis/Problems List Diabetic ketoacidosis Uncontrolled diabetes mellitus, Hb A1c is 9.3 SIRS, likely due to DKA NATASHA , baseline status undetermined, likely hemodynamically mediated, downtrending, baseline record not available Questionable right side hydronephrosis, based on ultrasound findings Mild anemia, normocytic normochromic History of CVA, with left-sided residual weakness History of schizophrenia History of anxiety and depression Hyperkalemia, monitoring Hyponatremia, likely pseudo, likely due to hyperglycemia Possible subCLINIC hypothyroidism Right eye enucleation, due to mucormycosis fungal infection Discharge Disposition: Home Discharge Instruct/Medications Diet: Consistent carbohydrate Activity: No Restrictions, As Tolerated Follow Up/Referral: Follow up with the PCP within 1 week of discharge Follow up with the discharge Clinic within after discharge Medications: Continue home medication Discharge Statement: "Patient was advised to return to the ER or call 911 if any headaches, dizziness, shortness of breath, chest pain, abdominal pain, bleeding, fevers, or worsening of medical condition. Patient was counseled about treatment plan, medications, possible side effects, patientverbalized understanding. All questions were answered to the best of my ability. This discharge took greater then 30 minutes in planning, reviewing documentation, counseling the patient, and discussing with other team members." ASSESSMENT ASSESSMENT Assessment DKA Sirs, likely due to DKA NATASHA Anemia History of CVA residual deficit on the left side History of schizophrenia History of anxiety and depression History of right side eye enucleation, due to mucormycosis JOSE KLEIN Aug 25, 2024 14:05
== END 2024-08-25 14:00 | disposition home or self-care (01) | DRG 420 ==
LOC: EDBD 18:16 → ER 18:16 → OVERFLOW 22:13 → TELE-WESTW 08-22 17:37
PROVIDERS: ADMIT Internal Medicine; ATTEND Emergency Medicine
DX: E10.10 Type 1 diabetes mellitus with ketoacidosis without coma (principal); N17.0 Acute kidney failure with tubular necrosis; B46.5 Mucormycosis, unspecified; S05.71XA Avulsion of right eye, initial encounter; R65.10 Systemic inflammatory response syndrome (SIRS) of non-infectious origin without acute organ dysfunction; D63.1 Anemia in chronic kidney disease; E10.22 Type 1 diabetes mellitus with diabetic chronic kidney disease; E86.0 Dehydration; I69.354 Hemiplegia and hemiparesis following cerebral infarction affecting left non-dominant side; N13.30 Unspecified hydronephrosis; Z20.822 Contact with and (suspected) exposure to COVID-19; F32.A Depression, unspecified; F41.9 Anxiety disorder, unspecified; E87.5 Hyperkalemia; E03.8 Other specified hypothyroidism; E87.1 Hypo-osmolality and hyponatremia; N18.9 Chronic kidney disease, unspecified; X58.XXXA Exposure to other specified factors, initial encounter; F20.9 Schizophrenia, unspecified; Z79.4 Long term (current) use of insulin; Y93.89 Activity, other specified; Y92.89 Other specified places as the place of occurrence of the external cause; Y99.8 Other external cause status
CPT/HCPCS: 36415; 36600; 71045; 76775; 80048; 80053; 81001; 82010; 82306; 82570; 82607; 82805; 82962; 83036; 83690; 83735; 83930; 83970; 84100; 84156; 84300; 84439; 84443; 84481; 85025; 87081; 87426; 87804; 97110; 97116; 97163; 97530; 99291; G0378; J1815